=== PATIENT | female | born 1990 | race Caucasian/White ===

== ENCOUNTER → 2018-06-08 03:39 | Outpatient (CLI) | payer BC, SELFPAY ==
[2018-06-08 10:36] LABS: ALT 25 U/L (12-78); AST 21 U/L (15-37); Albumin 4.2 g/dL (3.4-5.0); Alkaline Phosphatase 96 U/L (46-116); Anion Gap 6.2 mmol/L (3-11); BUN 13 mg/dL (7-18); Bilirubin, Total 0.4 mg/dL (0.2-1.0); CO2 27.8 mmol/L (21.0-32.0); CREATININE 0.81 mg/dL (0.55-1.02); Calcium 8.6 mg/dL (8.5-10.1); Chloride 104 mmol/L (98-107); Cholesterol 140 mg/dL (50-200); Glucose 91 mg/dL (70-100); HDL Cholesterol 69 mg/dL (40-60); LDL CHOLESTEROL 67 mg/dL (<100); Potassium 4.6 mmol/L (3.5-5.1); Sodium 138 mmol/L (136-145); Total Protein 7.7 g/dL (6.4-8.2)
[2018-06-08 10:37] LABS: Triglyceride < 25 mg/dL (30-150)
== END ==
DX: Z00.00 Encounter for general adult medical examination without abnormal findings (principal); Z13.220 Encounter for screening for lipoid disorders; Z13.228 Encounter for screening for other metabolic disorders
CPT/HCPCS: 36415; 80053; 80061; 83721

== ENCOUNTER 2019-02-02 12:36 | Outpatient (CLI) | payer OTHER, SELFPAY ==
[2019-02-02 15:44] LABS: Vitamin B12 658 pg/mL (193-986)
[2019-02-02 16:26] LABS: Vitamin D 25 Total 18.7 ng/ml (30-100)
[2019-02-02 21:01] LABS: T3,Free 3.9 pg/ml (2.8-5.3)
[2019-02-02 21:11] LABS: T3, Total 102 ng/dl (97-169)
[2019-02-02 21:42] LABS: Progesterone 0.3 ng/ml
[2019-02-03 10:15] LABS: Thyroperoxidase Antibody <28 U/mL (<61)
[2019-02-03 17:58] LABS: Thyroxine Binding Globulin 20 mcg/mL (11-27)
[2019-02-04 18:12] LABS: Zinc, Plasma 61 ug/dl (70 - 120); Zinc, RBC 998 ug/dl
[2019-02-05 15:48] LABS: Testosterone, Total 31 ng/dL (8-60)
[2019-02-05 17:33] LABS: Estradiol, Mass Spectrometry 35 pg/mL; Estrone 53 pg/mL
[2019-02-14 12:03] LABS: FREE T4 < 0.10 ng/dL (0.76-1.46)
== END 2019-02-02 12:56 ==
PROVIDERS: Visit Provider Naturopath
DX: L65.9 Nonscarring hair loss, unspecified (principal); Z82.49 Family history of ischemic heart disease and other diseases of the circulatory system; Z83.3 Family history of diabetes mellitus
CPT/HCPCS: 36415; 82306; 83695; 84402; 84403; 84630; 82607; 82670; 82679; 82746; 83036; 84144; 84439; 84442; 84443; 84480; 84481; 86376

== ENCOUNTER 2019-02-03 02:49 | Outpatient (CLI) | payer OTHER, SELFPAY ==
[2019-02-03 08:40] LABS: Hemoglobin A1C 5.4 % (4.5-6.2)
[2019-02-04 16:15] LABS: Lipoprotein (a) 9 mg/dL (<=30)
== END 2019-02-03 03:09 ==
DX: L65.9 Nonscarring hair loss, unspecified (principal); Z82.49 Family history of ischemic heart disease and other diseases of the circulatory system; Z83.3 Family history of diabetes mellitus
CPT/HCPCS: 36415; 83695; 83036

== ENCOUNTER 2019-02-23 08:31 | Outpatient (CLI) | payer OTHER, SELFPAY ==
[2019-02-23 09:12] LABS: Abs Immature Grans 0.01 k/cumm (0.0-0.09); Absolute Basophil Count 0.03 k/cumm (0.0-0.2); Absolute Lymphocyte Count 2.55 k/cumm (1.2-3.4); Absolute Monocyte Count 0.64 k/cumm (0.11-0.7); Absolute Neutrophil Count 4.36 k/cumm (1.2-6.7); Basophils % 0.4; Eosinophils % 6.2; HCT 41.1 % (36.0-46.0); HGB 13.9 g/dL (12.0-15.5); Immature Grans % 0.1; Lymphocytes % 31.5; Mean Corp. HGB Concentration 33.8 g/dL (32.0-36.0); Mean Corpuscular Hemoglobin 30.2 pg (27.0-33.0); Mean Corpuscular Volume 89.2 fL (80-95); Mean Platelet Volume 9.5 fL (8.0-11.0); Monocytes % 7.9; Neutrophils % 53.9; Platelet Count 256 x1000/uL (130-400); RBC 4.61 m/cumm (4.00-5.20); RBC Distribution Width 13.1 % (11.7-14.6); White Blood Cell Count 8.09 k/cumm (4.4-10.8)
[2019-02-23 10:20] LABS: T4 8.6 ug/dL (4.5-12.5)
[2019-02-23 10:51] LABS: FREE T4 1.22 ng/dL (0.76-1.46)
[2019-02-24 11:26] LABS: Thyrotropin Receptor Ab <1.00 IU/L
[2019-02-24 13:00] LABS: Zinc, Serum 0.71 mcg/mL (0.66-1.10)
[2019-02-24 13:30] LABS: Copper, Serum 0.97 mcg/mL (0.75-1.45)
[2019-02-26 13:24] LABS: T3 (Triiodothyronine) Reverse 13 ng/dL (10-24)
== END 2019-02-23 08:51 ==
PROVIDERS: Visit Provider Naturopath
DX: E60 Dietary zinc deficiency (principal); R79.89 Other specified abnormal findings of blood chemistry
CPT/HCPCS: 36415; 82525; 84235; 84436; 84439; 84482; 84630; 85025

== ENCOUNTER 2019-07-19 09:04 | Outpatient (CLI) | payer OTHER, SELFPAY ==
[2019-07-19 11:25] LABS: Abs Immature Grans 0.03 k/cumm (0.0-0.09); Absolute Basophil Count 0.02 k/cumm (0.0-0.2); Absolute Eosinophil Count 0.46 k/cumm (0.0-0.7); Absolute Lymphocyte Count 2.66 k/cumm (1.2-3.4); Absolute Monocyte Count 0.71 k/cumm (0.11-0.7); Basophils % 0.2; HCT 41.2 % (36.0-46.0); HGB 14.2 g/dL (12.0-15.5); Immature Grans % 0.3; Lymphocytes % 23.3; Mean Corp. HGB Concentration 34.5 g/dL (32.0-36.0); Mean Corpuscular Hemoglobin 30.6 pg (27.0-33.0); Mean Corpuscular Volume 88.8 fL (80-95); Mean Platelet Volume 9.1 fL (8.0-11.0); Monocytes % 6.2; Platelet Count 262 x1000/uL (130-400); RBC 4.64 m/cumm (4.00-5.20); RBC Distribution Width 12.9 % (11.7-14.6); White Blood Cell Count 11.43 k/cumm (4.4-10.8)
[2019-07-19 11:27] LABS: Absolute Neutrophil Count 7.54 k/cumm (1.2-6.7)
[2019-07-19 12:44] LABS: *AMPHETAMINES SCREEN URINE Negative (Negative); *BARBITURATES SCREEN URINE Negative (Negative); *BENZODIAZEPINES SCREEN URINE Negative (Negative); Cannabinoids THC Negative (Negative); Cocaine Screen,Urine Negative (Negative); METHADONE URINE SCREEN Negative (Negative); OPIATES URINE SCREEN Negative (Negative)
[2019-07-19 12:50] LABS: TSH (W/Ref FT4) 0.79 uIU/mL (0.36-3.74)
[2019-07-19 12:51] LABS: Tricyclic Antidepressants Negative (Negative)
[2019-07-20 10:53] LABS: Rubella IgG Ab (UVM) Positive; Syphilis Serology (RPR) Negative (Negative); Varicella IgG Antibody Positive
[2019-07-20 11:34] LABS: Hepatitis B Surface Ag Negative (NEGAT)
[2019-07-20 11:41] LABS: Hepatitis C Ab w Rflx HCV PCR Negative (NEGAT)
[2019-07-20 11:46] LABS: HIV-1/2 Ag & Ab Screen Negative (NEGAT)
== END 2019-07-19 09:24 ==
PROVIDERS: Visit Provider Obstetrics & Gynecology
DX: Z34.91 Encounter for supervision of normal pregnancy, unspecified, first trimester (principal); Z11.3 Encounter for screening for infections with a predominantly sexual mode of transmission; Z11.59 Encounter for screening for other viral diseases; Z11.4 Encounter for screening for human immunodeficiency virus [HIV]
CPT/HCPCS: 80055; 80307; 86787; 86803; 86850; 86900; 86901; 87340; 87389; 84443; 86592; 86762; 87086

== ENCOUNTER 2019-07-19 17:25 | Outpatient (REF) | payer OTHER, SELFPAY ==
[2019-07-19 16:10] LABS: *AMPHETAMINES SCREEN URINE Negative (Negative); *BARBITURATES SCREEN URINE Negative (Negative); *BENZODIAZEPINES SCREEN URINE Negative (Negative); Cannabinoids THC Negative (Negative); Cocaine Screen,Urine Negative (Negative); METHADONE URINE SCREEN Negative (Negative); OPIATES URINE SCREEN Negative (Negative)
[2019-07-19 16:12] LABS: Tricyclic Antidepressants Negative (Negative)
[2019-07-24 17:44] LABS: Buprenorphine Negative; Norbuprenorphine Negative
== END 2019-07-19 17:45 ==
LOC: LBN 17:25
PROVIDERS: Visit Provider Obstetrics & Gynecology
DX: Z34.91 Encounter for supervision of normal pregnancy, unspecified, first trimester (principal)
CPT/HCPCS: 80307

== ENCOUNTER 2019-08-26 08:31 | Outpatient (CLI) | payer OTHER, SELFPAY ==
[2019-08-26 11:59] LABS: Kit/Specimen SENT
== END 2019-08-26 08:51 ==
PROVIDERS: Visit Provider Obstetrics & Gynecology
DX: Z34.91 Encounter for supervision of normal pregnancy, unspecified, first trimester (principal)
CPT/HCPCS: 36415

== ENCOUNTER 2019-09-13 01:10 | Outpatient (CLI) | payer OTHER, SELFPAY ==
--- NOTE | 2019-09-13 15:01 | DI.US_ITS ---
EXAM: US OB 2-3 TRIMESTER CLINICAL HISTORY: ,z34.90,supervision of normal TECHNIQUE: Ultrasound performed using standard protocol. COMPARISON: No exams were available for comparison FINDINGS: The fetus was in variable position during the exam. The placenta is anterior. The biometric measure ments correspond to 17 weeks 6 days, consistent with predicted gestational age. No abnormaliti es were seen. The amniotic fluid quantity appears visually normal. IMPRESSION: survey is within normal limits.
== END 2019-09-13 01:30 ==
PROVIDERS: Visit Provider Obstetrics & Gynecology
DX: Z34.92 Encounter for supervision of normal pregnancy, unspecified, second trimester (principal); Z3A.17 17 weeks gestation of pregnancy
CPT/HCPCS: 76805

== ENCOUNTER 2019-10-13 12:12 | Outpatient (CLI) | payer OTHER, SELFPAY ==
[2019-10-13 12:29] LABS: Abs Immature Grans 0.04 k/cumm (0.0-0.09); Absolute Basophil Count 0.03 k/cumm (0.0-0.2); Absolute Eosinophil Count 0.39 k/cumm (0.0-0.7); Absolute Lymphocyte Count 2.31 k/cumm (1.2-3.4); Basophils % 0.2; Eosinophils % 2.5; HCT 37.3 % (36.0-46.0); Immature Grans % 0.3; Lymphocytes % 14.8; Mean Corp. HGB Concentration 34.9 g/dL (32.0-36.0); Mean Corpuscular Hemoglobin 31.1 pg (27.0-33.0); Mean Corpuscular Volume 89.2 fL (80-95); Mean Platelet Volume 8.6 fL (8.0-11.0); Monocytes % 4.9; Neutrophils % 77.3; Platelet Count 268 x1000/uL (130-400); RBC 4.18 m/cumm (4.00-5.20); RBC Distribution Width 12.9 % (11.7-14.6); White Blood Cell Count 15.62 k/cumm (4.4-10.8)
[2019-10-13 12:30] LABS: Absolute Monocyte Count 0.77 k/cumm (0.11-0.7); Absolute Neutrophil Count 12.07 k/cumm (1.2-6.7)
== END 2019-10-13 12:32 ==
PROVIDERS: Visit Provider Obstetrics & Gynecology
DX: R23.3 Spontaneous ecchymoses (principal)
CPT/HCPCS: 36415; 85025

== ENCOUNTER 2019-12-01 00:07 | Outpatient (CLI) | payer OTHER, SELFPAY ==
[2019-12-01 07:44] LABS: Abs Immature Grans 0.07 k/cumm (0.0-0.09); Absolute Basophil Count 0.03 k/cumm (0.0-0.2); Absolute Eosinophil Count 0.23 k/cumm (0.0-0.7); Absolute Lymphocyte Count 2.23 k/cumm (1.2-3.4); Absolute Monocyte Count 0.81 k/cumm (0.11-0.7); Absolute Neutrophil Count 11.03 k/cumm (1.2-6.7); Basophils % 0.2; Eosinophils % 1.6; HCT 35.9 % (36.0-46.0); HGB 12.3 g/dL (12.0-15.5); Immature Grans % 0.5 %; Lymphocytes % 15.5; Mean Corp. HGB Concentration 34.3 g/dL (32.0-36.0); Mean Corpuscular Hemoglobin 30.8 pg (27.0-33.0); Mean Platelet Volume 8.7 fL (8.0-11.0); Monocytes % 5.6; Neutrophils % 76.6; Platelet Count 290 x1000/uL (130-400); RBC 3.99 m/cumm (4.00-5.20)
[2019-12-01 07:49] LABS: Glucose,1 Hr (Glucola) 98 mg/dL (80-140)
== END 2019-12-01 00:27 ==
PROVIDERS: Visit Provider Obstetrics & Gynecology
DX: Z34.92 Encounter for supervision of normal pregnancy, unspecified, second trimester (principal)
CPT/HCPCS: 36415; 82950; 85025

== ENCOUNTER 2020-01-26 10:46 | Outpatient (REF) | payer OTHER, SELFPAY ==
[2020-01-26 14:12] LABS: *AMPHETAMINES SCREEN URINE Negative (Negative); *BARBITURATES SCREEN URINE Negative (Negative); *BENZODIAZEPINES SCREEN URINE Negative (Negative); Cannabinoids THC Negative (Negative); Cocaine Screen,Urine Negative (Negative); METHADONE URINE SCREEN Negative (Negative); OPIATES URINE SCREEN Negative (Negative); Tricyclic Antidepressants Negative (Negative)
[2020-01-30 15:40] LABS: Buprenorphine Negative
== END 2020-01-26 11:06 ==
LOC: LBN 10:46
PROVIDERS: Visit Provider Obstetrics & Gynecology
DX: Z34.93 Encounter for supervision of normal pregnancy, unspecified, third trimester (principal); Z36.85 Encounter for antenatal screening for Streptococcus B
CPT/HCPCS: 80307; 87081

== ENCOUNTER 2020-02-01 09:05 | Inpatient (IN) | payer OTHER, SELFPAY ==
[2020-02-01] MEDS: Normal Saline Flush 10 ML SYR IVP (10:46)
[2020-02-01 10:48] LABS: HCT 39.1 % (36.0-46.0); HGB 13.7 g/dL (12.0-15.5); Mean Corpuscular Hemoglobin 30.6 pg (27.0-33.0); Mean Corpuscular Volume 87.3 fL (80-95); Mean Platelet Volume 8.8 fL (8.0-11.0); Platelet Count 309 x1000/uL (130-400); RBC 4.48 m/cumm (4.00-5.20); RBC Distribution Width 12.8 % (11.7-14.6); White Blood Cell Count 20.11 k/cumm (4.4-10.8)
[2020-02-01 13:47] LABS: Abs Immature Grans 0.12 k/cumm (0.0-0.09); Absolute Basophil Count 0.02 k/cumm (0.0-0.2); Absolute Eosinophil Count 0.22 k/cumm (0.0-0.7); Absolute Monocyte Count 1.22 k/cumm (0.11-0.7); Basophils % 0.1; Eosinophils % 1.1; Immature Grans % 0.6 %; Lymphocytes % 12.3; Neutrophils % 79.9
[2020-02-01] MEDS: Lactated Ringers 1,000 ML 125 ML IV ×2 (14:09→21:53)
[2020-02-02] MEDS: CLINDAMYCIN 900 MG/50 ML BAG 50 MG IVPB ×2 (08:02→15:32)
[2020-02-02 08:29] LABS: COVID-19 RT-PCR Result Negative
[2020-02-02] MEDS: Bupivacaine 0.25% Pres-Free 30 ML VIAL (09:02)
[2020-02-02] MEDS: fentaNYL 100 MCG/2 ML VIAL (09:03)
[2020-02-02] MEDS: FentaNYL/ROPIvacaine 2 mcg/ml and 0.1% 200 ML CADD Cassette EP (09:04)
[2020-02-02] MEDS: Lidocaine 1% Multi-Dose 20 ML VIAL IJ (13:30)
[2020-02-02] MEDS: Lactated Ringers 1,000 ML 125 ML IV (13:30)
[2020-02-03 06:37] LABS: HCT 38.7 % (36.0-46.0); HGB 13.2 g/dL (12.0-15.5); Mean Corp. HGB Concentration 34.1 g/dL (32.0-36.0); Mean Corpuscular Hemoglobin 29.7 pg (27.0-33.0); Mean Corpuscular Volume 87.2 fL (80-95); Platelet Count 249 x1000/uL (130-400); RBC 4.44 m/cumm (4.00-5.20); RBC Distribution Width 12.8 % (11.7-14.6); White Blood Cell Count 19.21 k/cumm (4.4-10.8)
--- NOTE | 2020-02-04 08:48 | W.PM.PROGNOT ---
Date of Service Date of service: 02/04/20 Time of Service: 08:48 Assessment and Plan Assessment and plan (1) (normal spontaneous vaginal delivery): Start date: 02/04/20 Status: Acute Assessment and plan: PPD 2 s/p . Plan for discharge home today. Subjective Subjective Interval history since last seen: Doing well. No problems or concerns. Minimal lochia. Objective Objective Clinical Data: Laboratory Results WBC 19.21 k/cumm (4.4-10.8) H 02/03/20 06:00 RBC 4.44 m/cumm (4.00-5.20) 02/03/20 06:00 Hgb 13.2 g/dL (12.0-15.5) 02/03/20 06:00 Hct 38.7 % (36.0-46.0) 02/03/20 06:00 MCV 87.2 fL (80-95) 02/03/20 06:00 MCH 29.7 pg (27.0-33.0) 02/03/20 06:00 MCHC 34.1 g/dL (32.0-36.0) 02/03/20 06:00 RDW 12.8 % (11.7-14.6) 02/03/20 06:00 Plt Count 249 x1000/uL (130-400) 02/03/20 06:00 MPV 9.0 fL (8.0-11.0) 02/03/20 06:00 Immature Gran % 0.6 % 02/01/20 10:35 Immature Gran % Cancelled 02/01/20 10:35 Neutrophils % 79.9 02/01/20 10:35 Neutrophils % Cancelled 02/01/20 10:35 Band Neutrophils % Cancelled 02/01/20 10:35 Lymphocytes % 12.3 02/01/20 10:35 Lymphocytes % Cancelled 02/01/20 10:35 Atypical Lymphs % Cancelled 02/01/20 10:35 Monocytes % 6.0 02/01/20 10:35 Monocytes % Cancelled 02/01/20 10:35 Eosinophils % 1.1 02/01/20 10:35 Eosinophils % Cancelled 02/01/20 10:35 Basophils % 0.1 02/01/20 10:35 Basophils % Cancelled 02/01/20 10:35 Metamyelocytes % Cancelled 02/01/20 10:35 Myelocytes % Cancelled 02/01/20 10:35 Promyelocytes % Cancelled 02/01/20 10:35 Absolute Neutrophils 16.20 k/cumm (1.2-6.7) H 02/01/20 10:35 Absolute Neutrophils Cancelled 02/01/20 10:35 Absolute Lymphocytes 2.50 k/cumm (1.2-3.4) 02/01/20 10:35 Absolute Lymphocytes Cancelled 02/01/20 10:35 Absolute Monocytes 1.22 k/cumm (0.11-0.7) H 02/01/20 10:35 Absolute Monocytes Cancelled 02/01/20 10:35 Absolute Eosinophils 0.22 k/cumm (0.0-0.7) 02/01/20 10:35 Absolute Eosinophils Cancelled 02/01/20 10:35 Absolute Basophils 0.02 k/cumm (0.0-0.2) 02/01/20 10:35 Absolute Basophils Cancelled 02/01/20 10:35 Nucleated RBCs Cancelled 02/01/20 10:35 Differential Comment Cancelled 02/01/20 10:35 Other Cell Type Cancelled 02/01/20 10:35 RBC Morphology Cancelled 02/01/20 10:35 Polychromasia Cancelled 02/01/20 10:35 Hypochromasia Cancelled 02/01/20 10:35 Poikilocytosis Cancelled 02/01/20 10:35 Basophilic Stippling Cancelled 02/01/20 10:35 Anisocytosis Cancelled 02/01/20 10:35 Microcytosis Cancelled 02/01/20 10:35 Macrocytosis Cancelled 02/01/20 10:35 Spherocytes Cancelled 02/01/20 10:35 Target Cells Cancelled 02/01/20 10:35 Tear Drop Cells Cancelled 02/01/20 10:35 Ovalocytes Cancelled 02/01/20 10:35 Stomatocytes Cancelled 02/01/20 10:35 [place] Bodies Cancelled 02/01/20 10:35 [place] Cells Cancelled 02/01/20 10:35 Acanthocytes (Spur) Cancelled 02/01/20 10:35 Schistocytes Cancelled 02/01/20 10:35 Nasopharyn COVID-19 PCR Negative 02/01/20 10:00 Patient ABO/Rh O Positive 02/01/20 10:35 Antibody Screen Negative 02/01/20 10:35
--- NOTE | 2020-02-06 13:48 | HPE_ITS ---
Date of service: 02/06/20 Time of Service: 13:48 Assessment and Plan Assessment and plan (1) SROM (spontaneous rupture of membranes): Status: Acute Assessment and plan: Spontaneous rupture of membranes at term. Will admit to labor and delivery. Obtain CBC, type and screen. Will manage expectantly f or the next 5 hours. If labor does not ensue spontaneously will augment with Pitocin after several hours. Pain management options during labor were reviewed with the patient. All questions were answered. heart tracing was reviewed and is category 1. History of Present Illness History of Present Illness Chief Complaint: SROM at 37 weeks Narrative: 29-year-old G1, P0 at 37 weeks gestation presented with spontaneous rupture of membranes this morning. The patient reports a large loss of clear amniotic fluid. She reports only minimal rare contractions. Her pedal course to this point has been uncomplicated. Cervix on initial examination was fingertip and dilatation. Review of Systems All systems reviewed & are unremarkable except as noted in HPI and below PFS Surgical History (Updated 07/28/18 @ 14:35 by [employer] [place]) Appendectomy (~01/2011) Tonsillectomy (06/10/12) DR. SHEIKH @ [facility] Family History Mother No problems noted. Father Hyperlipidemia Brother No problems noted. Grandfather Diabetes Essential hypertension Heart disease Hyperlipidemia Grandfather Essential hypertension Hyperlipidemia Grandmother Diabetes Essential hypertension Personal history of malignant neoplasm OVARIAN Heart disease Hyperlipidemia Grandmother No problems noted. Social History Smoking/Tobacco Use Status: Never Meds Home Medications and Allergies Home Medications Medication Instructions Recorded Confirmed Type prenat.vits,michael,[id number] 1 tab PO DAILY 06/28/19 02/01/20 History Allergies Allergy/AdvReac Type Severity Reaction Status Date / Time No Known Allergies Allergy Verified 01/26/20 10:03 Exam Other: Cervical exam - FT/70%/-2 Results Labs Result diagrams: 02/03/20 06:00 COVID-19 Screening Traveled to [place] from one of the affected countries or regions?: N
--- NOTE | 2020-02-06 13:51 | PGE_ITS ---
Date of Service Date of service: 02/02/20 Time of Service: 07:30 Assessment and Plan Assessment and plan (1) SROM (spontaneous rupture of membranes): Status: Acute Assessment and plan: Continue Pitocin augmentation of labor. We will reevaluate cervical exam as needed. Subjective Subjective Interval history since last seen: Patient reports painful contractions overnight. She has been on Pitocin since approximately 2 PM yesterday. We did hold Pitocin overnight briefly due to lack of progress and this was restarted this morning. Repeat cervical exam at 430 this morning was 3 cm dilatation. She has been afebrile. Objective Objective Clinical Data: Laboratory Results WBC 19.21 k/cumm (4.4-10.8) H 02/03/20 06:00 RBC 4.44 m/cumm (4.00-5.20) 02/03/20 06:00 Hgb 13.2 g/dL (12.0-15.5) 02/03/20 06:00 Hct 38.7 % (36.0-46.0) 02/03/20 06:00 MCV 87.2 fL (80-95) 02/03/20 06:00 MCH 29.7 pg (27.0-33.0) 02/03/20 06:00 MCHC 34.1 g/dL (32.0-36.0) 02/03/20 06:00 RDW 12.8 % (11.7-14.6) 02/03/20 06:00 Plt Count 249 x1000/uL (130-400) 02/03/20 06:00 MPV 9.0 fL (8.0-11.0) 02/03/20 06:00 Immature Gran % 0.6 % 02/01/20 10:35 Immature Gran % Cancelled 02/01/20 10:35 Neutrophils % 79.9 02/01/20 10:35 Neutrophils % Cancelled 02/01/20 10:35 Band Neutrophils % Cancelled 02/01/20 10:35 Lymphocytes % 12.3 02/01/20 10:35 Lymphocytes % Cancelled 02/01/20 10:35 Atypical Lymphs % Cancelled 02/01/20 10:35 Monocytes % 6.0 02/01/20 10:35 Monocytes % Cancelled 02/01/20 10:35 Eosinophils % 1.1 02/01/20 10:35 Eosinophils % Cancelled 02/01/20 10:35 Basophils % 0.1 02/01/20 10:35 Basophils % Cancelled 02/01/20 10:35 Metamyelocytes % Cancelled 02/01/20 10:35 Myelocytes % Cancelled 02/01/20 10:35 Promyelocytes % Cancelled 02/01/20 10:35 Absolute Neutrophils 16.20 k/cumm (1.2-6.7) H 02/01/20 10:35 Absolute Neutrophils Cancelled 02/01/20 10:35 Absolute Lymphocytes 2.50 k/cumm (1.2-3.4) 02/01/20 10:35 Absolute Lymphocytes Cancelled 02/01/20 10:35 Absolute Monocytes 1.22 k/cumm (0.11-0.7) H 02/01/20 10:35 Absolute Monocytes Cancelled 02/01/20 10:35 Absolute Eosinophils 0.22 k/cumm (0.0-0.7) 02/01/20 10:35 Absolute Eosinophils Cancelled 02/01/20 10:35 Absolute Basophils 0.02 k/cumm (0.0-0.2) 02/01/20 10:35 Absolute Basophils Cancelled 02/01/20 10:35 Nucleated RBCs Cancelled 02/01/20 10:35 Differential Comment Cancelled 02/01/20 10:35 Other Cell Type Cancelled 02/01/20 10:35 RBC Morphology Cancelled 02/01/20 10:35 Polychromasia Cancelled 02/01/20 10:35 Hypochromasia Cancelled 02/01/20 10:35 Poikilocytosis Cancelled 02/01/20 10:35 Basophilic Stippling Cancelled 02/01/20 10:35 Anisocytosis Cancelled 02/01/20 10:35 Microcytosis Cancelled 02/01/20 10:35 Macrocytosis Cancelled 02/01/20 10:35 Spherocytes Cancelled 02/01/20 10:35 Target Cells Cancelled 02/01/20 10:35 Tear Drop Cells Cancelled 02/01/20 10:35 Ovalocytes Cancelled 02/01/20 10:35 Stomatocytes Cancelled 02/01/20 10:35 [place] Bodies Cancelled 02/01/20 10:35 [place] Cells Cancelled 02/01/20 10:35 Acanthocytes (Spur) Cancelled 02/01/20 10:35 Schistocytes Cancelled 02/01/20 10:35 Nasopharyn COVID-19 PCR Negative 02/01/20 10:00 Patient ABO/Rh O Positive 02/01/20 10:35 Antibody Screen Negative 02/01/20 10:35
== END 2020-02-04 11:45 | disposition home or self-care (01) | DRG 807 ==
PROVIDERS: Admitting Provider Obstetrics & Gynecology; Visit Provider Obstetrics & Gynecology
DX: O69.81X0 Labor and delivery complicated by cord around neck, without compression, not applicable or unspecified (principal); Z37.0 Single live birth; Z3A.37 37 weeks gestation of pregnancy; O42.02 Full-term premature rupture of membranes, onset of labor within 24 hours of rupture; O70.0 First degree perineal laceration during delivery
CPT/HCPCS: 36415; 85027; 86850; 86900; 86901; 99223; 99233; U0003; 85007; J1580; J3010; J3490

== ENCOUNTER 2020-02-07 12:07 | Outpatient (CLI) | payer OTHER, SELFPAY | END 2020-02-07 12:27 | PROVIDERS: Visit Provider Obstetrics & Gynecology | DX: Z39.1 Encounter for care and examination of lactating mother (principal) | CPT/HCPCS: E0602 ==

== ENCOUNTER 2020-03-13 10:58 | Outpatient (REF) | payer OTHER, SELFPAY ==
--- NOTE | 2020-03-13 10:30 | PAPFT_PTH ---
PATIENT: Billie Phillips LOC: [facility] U#:[id number] AGE/SX: 29/F ROOM: RE03/13/[address]: Yoan Turner MD : 1990 BED: DIS: 03/13/2020 SPEC #: [id number] RECD: 03/13/20 13:04 STATUS: GRACIE REChase #: [id number] THANH: 03/13/20 10:[address]: Yoan Turner DEPT: ON LICENSE OF [facility] Cytology RECD BY: Felicia Jasmine ENTERED: 03/13/20 13:04 SP TYPE: PAPFT OTHR DR: Dulce Shook APRN Tissues: 1 - CX/ENDOCX FOR PAP SMEARS Procedures: PAP THIN PREP/[facility] Screening Comments: [id number]
== END 2020-03-13 11:18 ==
LOC: LBN 10:58
PROVIDERS: Visit Provider Obstetrics & Gynecology
DX: Z12.4 Encounter for screening for malignant neoplasm of cervix (principal)
CPT/HCPCS: 88142

== ENCOUNTER 2020-09-10 07:56 | Outpatient (REF) | payer OTHER, SELFPAY ==
[2020-09-11 02:20] LABS: COVID-19 RT-PCR UVMMC Result Negative (Negative)
== END 2020-09-10 08:16 ==
LOC: LBO 07:56
PROVIDERS: Visit Provider Surgery
DX: Z20.828 Contact with and (suspected) exposure to other viral communicable diseases (principal)
CPT/HCPCS: U0003

== ENCOUNTER 2021-10-16 09:00 | Outpatient (CLI) | payer OTHER, SELFPAY ==
[2021-10-16 10:13] LABS: HCG Quant, Pregnancy 16264 mIU/mL (1-3)
== END 2021-10-16 09:01 | disposition home or self-care (01) ==
LOC: LBO 09:00
PROVIDERS: Visit Provider Obstetrics & Gynecology
DX: O36.80X0 Pregnancy with inconclusive fetal viability, not applicable or unspecified (principal)
CPT/HCPCS: 36415; 84702

== ENCOUNTER 2021-10-18 15:26 | Outpatient (REF) | payer OTHER, SELFPAY ==
[2021-10-18 16:04] LABS: HCG Quant, Pregnancy 24904 mIU/mL (1-3)
== END 2021-10-18 15:27 | disposition home or self-care (01) ==
LOC: LBN 15:26
PROVIDERS: Visit Provider Obstetrics & Gynecology
DX: O26.851 Spotting complicating pregnancy, first trimester (principal)
CPT/HCPCS: 84702

== ENCOUNTER 2021-10-22 02:19 | Outpatient (CLI) | payer OTHER, SELFPAY ==
[2021-10-22 15:50] LABS: HCG Quant, Pregnancy 44798 mIU/mL (1-3)
== END 2021-10-22 02:20 | disposition home or self-care (01) ==
LOC: LBO 02:19
PROVIDERS: Visit Provider Obstetrics & Gynecology
DX: O26.851 Spotting complicating pregnancy, first trimester (principal)
CPT/HCPCS: 36415; 84702

== ENCOUNTER 2021-11-25 12:30 | Outpatient (REF) | payer OTHER, SELFPAY ==
[2021-11-25 14:49] LABS: *AMPHETAMINES SCREEN URINE Negative (Negative); *BARBITURATES SCREEN URINE Negative (Negative); *BENZODIAZEPINES SCREEN URINE Negative (Negative); Cannabinoids THC Negative (Negative); Cocaine Screen,Urine Negative (Negative); METHADONE URINE SCREEN Negative (Negative); OPIATES URINE SCREEN Negative (Negative)
[2021-11-25 14:50] LABS: Tricyclic Antidepressants Negative (Negative)
[2021-11-26 15:21] LABS: Chlamydia Result Negative (Negative); GC Result Negative (Negative)
[2021-11-28 11:08] LABS: Buprenorphine Negative ng/mL (Cutoff: 5.0); Norbuprenorphine Negative ng/mL (Cutoff: 2.5)
== END 2021-11-25 12:31 | disposition home or self-care (01) ==
LOC: LBN 12:30
PROVIDERS: Visit Provider Advanced Practice Midwife
DX: Z34.91 Encounter for supervision of normal pregnancy, unspecified, first trimester (principal)
CPT/HCPCS: 80307; 87491; 87591; 87086

== ENCOUNTER 2021-11-26 02:17 | Outpatient (CLI) | payer OTHER, SELFPAY ==
[2021-11-26 14:39] LABS: Kit/Specimen SENT
[2021-11-26 14:49] LABS: Abs Immature Grans 0.04 10^3/uL (0.0-0.06); Absolute Basophil Count 0.01 10^3/uL (0.0-0.2); Absolute Eosinophil Count 0.35 10^3/uL (0.0-0.7); Absolute Monocyte Count 0.69 10^3/uL (0.1-0.8); Absolute Neutrophil Count 9.86 10^3/uL (1.2-6.7); Basophils % 0.1; Eosinophils % 2.5; HCT 39.4 % (36.0-46.0); HGB 13.1 g/dL (11.2-15.7); Immature Grans % 0.3; Lymphocytes % 22.6; MCH 29.8 pg (27.0-33.0); MCHC 33.2 % (32.0-36.0); MCV 89.7 fL (80-95); MPV 8.7 fL (8.0-11.0); Monocytes % 4.9; Neutrophils % 69.6; Nucleated RBC 0 %; Platelet Count 271 10^3/uL (130-400); RBC 4.39 10^6/uL (3.93-5.22); RDW-SD 42.8 fL; WBC 14.17 10^3/uL (4.4-10.8)
[2021-11-28 09:36] LABS: Hepatitis B Surface Ag Negative (Negative)
[2021-11-28 10:11] LABS: HIV-1/2 Ag & Ab Screen Negative (Negative)
[2021-11-28 10:28] LABS: Hepatitis C Ab w Rflx HCV PCR Negative (Negative)
[2021-11-28 10:43] LABS: Varicella IgG Antibody Positive (See Note)
[2021-11-28 10:47] LABS: Rubella IgG Ab (UVM) Positive (See Note)
[2021-12-11 11:22] LABS: Syphilis IgG w/Reflex Nonreactive (Nonreactive)
== END 2021-11-26 02:18 | disposition home or self-care (01) ==
PROVIDERS: Visit Provider Advanced Practice Midwife
DX: Z34.81 Encounter for supervision of other normal pregnancy, first trimester (principal)
CPT/HCPCS: 86787; 86803; 86850; 86900; 86901; 87340; 87389; 85025; 86762; 86780

== ENCOUNTER 2022-01-24 10:09 | Outpatient (REF) | payer OTHER, SELFPAY ==
[2022-01-27 14:28] LABS: Calculated age at EDD 31 years; Cigarette smoking status non-Smoker; GA used in risk estimate Scan estimate; IVF Pregnancy No; Initial or repeat testing Initial testing; Insulin dependent diabetes No; Maternal Weight 191 lbs; Number of Fetuses 1; Physician Phone Number 802-748-7300; Prev Pregnancy w/NTD No; RECOMMENDED FOLLOW UP None.; Results Summary Normal risk
== END 2022-01-24 10:10 | disposition home or self-care (01) ==
LOC: LBN 10:09
PROVIDERS: Visit Provider Obstetrics & Gynecology
DX: Z34.92 Encounter for supervision of normal pregnancy, unspecified, second trimester (principal); Z36.89 Encounter for other specified antenatal screening; Z3A.19 19 weeks gestation of pregnancy
CPT/HCPCS: 82105

== ENCOUNTER 2022-03-31 02:40 | Outpatient (CLI) | payer OTHER, SELFPAY ==
[2022-03-31 07:24] LABS: Glucose,1 Hr (Glucola) 93 mg/dL (80-140)
== END 2022-03-31 02:41 | disposition home or self-care (01) ==
LOC: LBO 02:40
PROVIDERS: Obstetrics & Gynecology Gynecology; Visit Provider Obstetrics & Gynecology
DX: Z34.93 Encounter for supervision of normal pregnancy, unspecified, third trimester (principal); Z3A.29 29 weeks gestation of pregnancy
CPT/HCPCS: 36415; 82950

== ENCOUNTER 2022-05-19 17:22 | Outpatient (REF) | payer OTHER, SELFPAY ==
[2022-05-19 15:54] LABS: *AMPHETAMINES SCREEN URINE Negative (Negative); *BARBITURATES SCREEN URINE Negative (Negative); *BENZODIAZEPINES SCREEN URINE Negative (Negative); Cannabinoids THC Negative (Negative); Cocaine Screen,Urine Negative (Negative); METHADONE URINE SCREEN Negative (Negative); OPIATES URINE SCREEN Negative (Negative)
[2022-05-19 16:09] LABS: Tricyclic Antidepressants Negative (Negative)
[2022-05-28 10:03] LABS: Buprenorphine Negative ng/mL (Cutoff: 5.0); Norbuprenorphine Negative ng/mL (Cutoff: 2.5)
== END 2022-05-19 17:23 | disposition home or self-care (01) ==
LOC: LBN 17:22
PROVIDERS: Visit Provider Obstetrics & Gynecology
DX: Z34.93 Encounter for supervision of normal pregnancy, unspecified, third trimester (principal); Z36.85 Encounter for antenatal screening for Streptococcus B; Z3A.36 36 weeks gestation of pregnancy
CPT/HCPCS: 80307; 87081

== ENCOUNTER 2022-06-13 04:26 | Inpatient (IN) | payer OTHER, SELFPAY ==
[2022-06-13] VITALS (24 sets, daily range): BP systolic 116–161; BP diastolic 56–104; PULSE 53–88; RESP 16–18; TEMP 36.6–36.8; O2SAT 98–99; BMI 35.6
--- OUTSIDE RECORDS SUMMARY | 2022-06-13 04:27 | XMS_ITS | Encounter Summary ---
:1990 Author Organization [facility] Address [address] [place] [address] Care Team Providers Name Role Phone Cally Flores Primary Care Provider Unavailable Encounter Details Date Type Department Care Team Description 11/25/2021 Lab Requisition [facility] Outr Resulting Lab, Pathology & Laboratory Provider [facility] [address] [place] [address] Social History Tobacco Use Types Packs/Day Years Used Date Never Assessed Sex Assigned at Date Recorded Not on file documented as of this encounter Plan of Treatment Not on filedocumented as of this encounter Procedures Procedure Name Priority Date/Time Associated Comments Diagnosis CHLAMYDIA/N. Routine 11/25/2021 9:25 Results for this GONORRHOEAE AMPLIFIED EST proced ure are in RNA the results section. documented in this encounter Results CHLAMYDIA/N. GONORRHOEAE AMPLIFIED RNA (11/25/2021 9:25 EST) Pathologist Sig nature Gonococcus Result Negative Negative [facility] Chlamydia Result Negative Negative [facility] Specimen Urine - Urine, Initial Void Narrative [facility] - 11/26/2021 15:16 EST A first catch urine specimen is acceptab le for detection of Gonorrhea and Chlamydia, but might detect up to 10% fewer infecti ons when compared with vaginal and endocervical swab samples. Performing Organization Address City/State/ZIP Code Phon e Number [facility] [address] [place] [address] SERVICES documented in this encounter Visit Diagnoses Not on filedocumented in this encounter Care Teams Senior Quality Control Technician Relationship Specialty Start Date End Date Cally Flores PA PCP - General 06/16/12 documented as of this encounter
--- OUTSIDE RECORDS SUMMARY | 2022-06-13 04:27 | XMS_ITS | Encounter Summary ---
:1990 Author Organization [facility] Address [address] [place] [address] Care Team Providers Name Role Phone Unknown, Provider Primary Care Provider Encounter Details Date Type Department Care Team Description 01/31/2011 Results Only [facility] Alpesh Magdaleno , Laboratory Services - [address] [facility] [address] [place] [address] [place] [address] [phone] Social History Tobacco Use Types Packs/Day Years Used Date Never Assessed Sex Assigned at Date Recorded Not on file documented as of this encounter Plan of Treatment Not on filedocumented as of this encounter Procedures Procedure Name Priority Date/Time Associated Diagnosis Comme [facility] SURGICAL PATHOLOGY Routine 01/31/2011 0:00 EDT Re sults for this procedure are i n the results section. documented in this encounter Results SURGICAL PATHOLOGY (01/31/2011 0:00 EDT) Pathology Report: SURGICAL PATHOLOGY REPORT ? [facility] Reports generated via [employer] interface contain original data; ? LAB however they are lacking the format of the original report. ? Caution should be taken when reading/interpreting unformatted reports. ? Name: ? ANNMARIE, BILLIE ? Accession #: ? [id number] ? : ? 1990 (Age: 20) ??F ? Collec t Date: ? 01/31/2011 ? Location: ? [facility] ? R eceive Date: ? 02/03/2011 ? Provider: ALPESH BURNS SON DO ? Copy to: SARAH BETH RODRIGUEZ MD ? Final Pathologic Diagnosis: ? Appendix, appendectom y: ? - Subacute appendicitis. ? Document reviewed and electr onically signed by: ? TERRIE CHRISTOPHER MD ? Report ??Date: 02/05/2011 15 :47 ? By the signature above, the attending physician certifies that he/she has ? personally conducted a gross and/or microscopic examination of the described ? specimens and rendered or co nfirmed the above diagnosis. ? Specimen(s) Received: ? Appendix ? Clinical History: ? Appendicitis ? Gross Description: ? Received in formalin labelled Annmarie, Billie and appendix is a ? vermiform appendix measuring 5.0 cm in length, averaging 0.6 cm in diameter. ? The serosa is predominantly horner-pink, smooth and glistening and focally ? hyperemic at the distal aspe ct. ??There is a minimal amount of attached ? mesoappendix. ??Upon section ing, the lumen ranges from 0.1 to 0.4 cm in diameter. The wall averages 0.2 cm in thickness and no discrete nodule or perforation is grossly present. ??The proxi mal margin is inked for identification purposes. ??The specimen is entirely submitt ed as follows: ? BLOCK MILLARD ? A1 ?Inked proxi mal margin en face one cross section and the distal end ?? bisected ? A2,A3 ?Remainin g cross sections ? (M. Butler)/cjh ? End of Report ? Specimen Performing Organization Address City/State/[facility] Code Phon e Number [facility] [address] [place] [address] SERVICES [facility] [address] [place] [address] documented in this encounter Visit Diagnoses Not on filedocumented in this encounter Care Teams Digital Marketing Manager Relationship Specialty Start Date End Date Unknown, Provider, PCP - General 02/03/11 06/15/12 documented as of this encounter
--- OUTSIDE RECORDS SUMMARY | 2022-06-13 04:27 | XMS_ITS | Encounter Summary ---
:1990 Author Organization [facility] Address [address] [place] [address] Care Team Providers Name Role Phone Magy Flores Primary Care Provider Unavailable Encounter Details Date Type Department Care Team Description 02/23/2014 Results Only [facility] Miranda Flores am, PA Services - [place] en [address] [address] Social History Tobacco Use Types Packs/Day Years Used Date Never Assessed Sex Assigned at Date Recorded Not on file documented as of this encounter Plan of Treatment Not on filedocumented as of this encounter Procedures Procedure Name Priority Date/Time Associated Diagnosis Comme nts PAP TEST- RESULT Routine 02/23/2014 0:00 EDT Resu lts for this ONLY procedure are i n the results section. documented in this encounter Results PAP TEST- RESULT ONLY (02/23/2014 0:00 EDT) Pathology Report: CYTOPATHOLOGY REPORT [facility] Reports generated via electronic interface contain jeniffer ginal data; however they are lacking the format of the original re port. Caution should be taken when reading/interpreting unfo rmatted reports. Name: ? BILLIE ANGUIANO ? Accession #: ? [id number] : ? 1990 (Age: 23) ??F ?Collect Date: ? 02/09 Location: ? [facility] ? Receive Date : ? 02/27/2014 Provider: ?MAGY HUFFMAN Copy to: ? Specimen/Source: ? Pap Test, Cervix/Endocervix, ThinPrep Imaging System with manual evaluation Last Menstrual Period: ? unknown ? SPECIMEN ADEQUACY ? Satisfactory for Evaluation - transformation zone component present - lack of pertinent clinical information (e.g. LMP not provided) GENERAL CATEGORIZATION ? Negative for Intraepithelial Lesion or Malignan cy ? Document reviewed and electronically signed by: ? VU Nam(ASCP) ? Report Date: ??03/07/2014 14:05 End of Report Specimen Performing Organization Address City/State/ZIP Code Phon e Number [facility] [address] [place] [address] SERVICES [facility] [address] [place] [address] documented in this encounter Visit Diagnoses Not on filedocumented in this encounter Care Teams Nuclear Medicine Technician Relationship Specialty Start Date End Date Magy Flores PA PCP - General 06/16/12 documented as of this encounter
--- OUTSIDE RECORDS SUMMARY | 2022-06-13 04:27 | XMS_ITS | Encounter Summary ---
:1990 Author Organization [facility] Address [address] [place] [address] Care Team Providers Name Role Phone Cally Flores Primary Care Provider Unavailable Encounter Details Date Type Department Care Team Description 02/11/2016 Hospital Encounter [facility] - Unknown, Janae irene [facility] [phone] [place] [address] (Work) [place] [address] Social History Tobacco Use Types Packs/Day Years Used Date Never Assessed Sex Assigned at Date Recorded Not on file documented as of this encounter Discharge Disposition Disposition Code Departure Means Destination Home or Self Snf documented in this encounter Plan of Treatment Not on filedocumented as of this encounter Visit Diagnoses Not on filedocumented in this encounter Care Teams Lath Tier Relationship Specialty Start Date End Date Cally Flores PA PCP - General 06/16/12 documented as of this encounter
--- OUTSIDE RECORDS SUMMARY | 2022-06-13 04:27 | XMS_ITS | Encounter Summary ---
:1990 Author Organization [facility] Address [address] [place] [address] Care Team Providers Name Role Phone Cally Flores Primary Care Provider Unavailable Encounter Details Date Type Department Care Team Description 11/27/2021 Lab Requisition [facility] Outr Resulting Lab, Pathology & Laboratory Provider [facility] [address] [place], [place] [address] Social History Tobacco Use Types Packs/Day Years Used Date Never Assessed Sex Assigned at Date Recorded Not on file documented as of this encounter Plan of Treatment Not on filedocumented as of this encounter Procedures Procedure Name Priority Date/Time Associated Diagnosis Comme nts RUBELLA IGG Routine 11/26/2021 14:20 Results for this ANTIBODY EST procedure are i n the results section. VARICELLA IGG Routine 11/26/2021 14:20 Results fo r this ANTIBODY EST procedure are i n the results section. documented in this encounter Results VARICELLA IGG ANTIBODY (11/26/2021 14:20 EST) Varicella IgG Ab PositiveComment: See Note [facility] Presence of LABORATORY SERVICES detectable Varicella Zoster virus IgG antibodies. Specimen Blood - Venous blood (substance) Performing Organization Address City/[facility]/ZIP Code Phon e Number [facility] [address] [place] [address] SERVICES RUBELLA IGG ANTIBODY (11/26/2021 14:20 EST) Rubella IgG Ab PositiveComment: See Note [facility] Positive for IgG LABORATORY SERVICES antibodies to Rubella virus. Specimen Blood - Venous blood (substance) Performing Organization Address City/[facility] Code Phon e Number [facility] [address] [place] [address] SERVICES documented in this encounter Visit Diagnoses Not on filedocumented in this encounter Care Teams Skein Yarn Drier Relationship Specialty Start Date End Date Cally Flores PA PCP - General 06/16/12 documented as of this encounter
--- OUTSIDE RECORDS SUMMARY | 2022-06-13 04:27 | XMS_ITS | Encounter Summary ---
:1990 Author Organization [facility] Address [address] [place] [address] Care Team Providers Name Role Phone Cally Flores Primary Care Provider Unavailable Encounter Details Date Type Department Care Team Description 05/28/2021 Lab Requisition [facility] Outr Resulting Lab, Pathology & Laboratory Provider [facility] [address] [place], [place] [address] Social History Tobacco Use Types Packs/Day Years Used Date Never Assessed Sex Assigned at Date Recorded Not on file documented as of this encounter Plan of Treatment Not on filedocumented as of this encounter Procedures Procedure Name Priority Date/Time Associated Diagnosis Comme nts COVID-19 TEST [facility] Today 05/28/2021 9:16 EDT LAB PCR COVID-19 TESTING Routine 05/28/2021 9:16 EDT Resu lts for this procedure are i n the results section. documented in this encounter Results COVID-19 TEST [facility] LAB PCR (05/28/2021 9:16 EDT) Specimen Swab - Entire nasopharynx (body structur e) Performing Organization Address City/State/ZIP Code Phon e Number [facility] [address] [place] [address] SERVICES COVID-19 TESTING (05/28/2021 9:16 EDT) COVID-19 rt-PCR Negative Negative [facility] Result Comment: [facility] This test has not been FDA c leared or approved. This test has been authorized by FDA under an EUA for use by authorized laboratories. This test has been authorized only for detection of nucleic acid fro SERVICES m 2018-nCoV, not for any oth er viruses or pathogens. This test is only authorized for the duration of the declaration that circumstances exist justifying the authorization of emergency use of in vitro d iagnostic tests for detectio n and/or diagnosis of 2019-nCoV under section 564(b)(1) of Act, 21 U.S.C ?? 360bbb-3(b) (1), unless the authorization is terminated or revoked sooner. Negative results do not prec lude 2019-nCoV infection and should not be used as the sole basis for treatment or other patient management decisions. Negative results must be combined with clinical observa tions, patient history, and epidemiological informatio n. This test was developed and its performance characteristics determined by [facility]. It has not been cleared or approved by the US Food and Drug Administration. FDA does not require this test to go through premarket FDA review. This t est is used for clinical purposes. It should not be regarded as investigational or for research. This laboratory is certified under the Clinical Laboratory Improvement Amendm ents (CLIA) as qualified to perform high complexity clinical laboratory testing. This test is based on the CD C COVID-19 Emergency Use Authorization (EUA) assay, with minor modification as defined by the FDA Performed on the Bah[employer]io 7 Pro RT-PCR System. Performing Lab [facility] Specimen Swab Performing Organization Address City/State/ZIP Code Phon e Number [facility] [address] [place] [address] SERVICES documented in this encounter Visit Diagnoses Not on filedocumented in this encounter Care Teams Restaurant Recruiter Relationship Specialty Start Date End Date Cally Flores PA PCP - General 06/16/12 documented as of this encounter
--- OUTSIDE RECORDS SUMMARY | 2022-06-13 04:27 | XMS_ITS | Encounter Summary ---
:1990 Author Organization Health system Address [address] [place] [address] Care Team Providers Name Role Phone Cally Flores Primary Care Provider Unavailable Encounter Details Date Type Department Care Team Description 09/10/2020 Lab Requisition [facility] Outr Resulting Lab, Pathology & Laboratory Provider [facility] [address], [place] [address] Social History Tobacco Use Types Packs/Day Years Used Date Never Assessed Sex Assigned at Date Recorded Not on file documented as of this encounter Plan of Treatment Not on filedocumented as of this encounter Procedures Procedure Name Priority Date/Time Associated Diagnosis Comme nts COVID-19 TEST [facility] Today 09/10/2020 12:26 LAB PCR EST COVID-19 TESTING Routine 09/10/2020 12:26 Results for this EST procedure are i n the results section. documented in this encounter Results COVID-19 TEST [facility] LAB PCR (09/10/2020 12:26 EST) Specimen Swab - Entire nasopharynx (body structur e) Performing Organization Address City/State/ZIP Code Phon e Number [facility] [address] [place] [address] SERVICES COVID-19 TESTING (09/10/2020 12:26 EST) COVID-19 rt-PCR Negative Negative [facility] Result Comment: [facility] This test [...] tions, patient history, and epidemiological informatio n. Performed on the [employer] Fusion instrument Performing Lab [place] [facility] Lab [facility] SERVICES Specimen Swab Performing Organization Address City/State/ZIP Code Phon e Number [facility] [address] [place] [phone] SERVICES documented in this encounter Visit Diagnoses Not on filedocumented in this encounter Care Teams Rouge Miller Relationship Specialty Start Date End Date Cally Flores PA PCP - General 06/16/12 documented as of this encounter
--- OUTSIDE RECORDS SUMMARY | 2022-06-13 04:27 | XMS_ITS | Encounter Summary ---
:1990 Author Organization [facility] Address [address] [place] [id number] Care Team Providers Name Role Phone Unknown, Provider Primary Care Provider Encounter Details Date Type Department Care Team Description 12/22/2011 Results Only [facility] Miranda Flores am, PA Services - [place] All en [address] [address] Social History Tobacco Use Types Packs/Day Years Used Date Never Assessed Sex Assigned at Date Recorded Not on file documented as of this encounter Plan of Treatment Not on filedocumented as of this encounter Procedures Procedure Name Priority Date/Time Associated Diagnosis Comme nts PAP TEST- RESULT Routine 12/22/2011 0:00 EDT Resu lts for this ONLY procedure are i n the results section. documented in this encounter Results PAP TEST- RESULT ONLY (12/22/2011 0:00 EDT) Pathology Report: CYTOPATHOLOGY REPORT [facility] Reports generated via electronic interface contain jeniffer ginal data; however they are lacking the format of the original re port. Caution should be taken when reading/interpreting unfo rmatted reports. Name: ? BILLIE ANGUIANO ? Accession #: ? [id number] : ? 1990 (Age: 21) ??F ?Collect Date: ? 12/10 Location: ? [facility] ? Receive Date : ? 12/23/2011 Provider: ?MAGY HUFFMAN Copy to: ? Specimen/Source: ? Pap Test, Cervix/Endocervix, ThinPrep Imaging System with manual evaluation Last Menstrual Period: ? 12/08/2011 Hormonal/Contraceptive Status: ? Control Pills ? SPECIMEN ADEQUACY ? Satisfactory for Evaluation - transformation zone component present GENERAL CATEGORIZATION ? Negative for Intraepithelial Lesion or Malignan cy ? Document reviewed and electronically signed by: ? UV Banuelos(ASCP) ? Report Date: ??12/25/2011 09:49 End of Report Specimen Performing Organization Address City/State/ZIP Code Phon e Number [facility] [address] [place] [address] SERVICES [facility] [address] [place] [address] documented in this encounter Visit Diagnoses Not on filedocumented in this encounter Care Teams Concert Promoter Relationship Specialty Start Date End Date Unknown, Provider, PCP - General 02/03/11 06/15/12 documented as of this encounter
--- OUTSIDE RECORDS SUMMARY | 2022-06-13 04:27 | XMS_ITS | Encounter Summary ---
:1990 Author Organization [facility] Address [address] [place] [address] Care Team Providers Name Role Phone Cally Flores Primary Care Provider Unavailable Encounter Details Date Type Department Care Team Description 02/01/2020 Lab Requisition [facility] Paul Judge En counter for other Pathology & D, general examination Laboratory Medicine - [address] [place], [place] [address] [facility] [id number] [place] [address] Social History Tobacco Use Types Packs/Day Years Used Date Never Assessed Sex Assigned at Date Recorded Not on file documented as of this encounter Plan of Treatment Not on filedocumented as of this encounter Procedures Procedure Name Priority Date/Time Associated Diagnosis Comme nts COVID-19 TEST [facility] STAT 02/01/2020 10:00 Encounter for oth er LAB PCR EDT general examination COVID-19 TESTING STAT 02/01/2020 10:00 Encounter for other Results for this EDT general examination procedur e are in the results section. documented in this encounter Results COVID-19 TEST [facility] PCR (02/01/2020 10:00 EDT) Specimen Swab - Entire nasopharynx (body structur e) Performing Organization Address City/State/ZIP Code Phon e Number [facility] [address] [place] [address] SERVICES COVID-19 TESTING (02/01/2020 10:00 EDT) COVID-19 rt-PCR Negative Negative [facility] Result Comment: [facility] Negative results do not prec lude 2019-nCoV infection and should not be used as the sole basis for treatment or other patient management decisions. Negative results must be combined with clinical observa SERVICES tions, patient history, and epidemiological informatio n. This test has not been FDA c leared or approved. This test has been authorized by FDA under an EUA for use by authorized laboratories. This test has been authorized only for detection of nucleic acid fro m 2019-nCoV, not for any oth er viruses or pathogens. This test is only authorized for the duration of the declaration that circumstances exist justifying the authorization of emergency use of in vitro d iagnostic tests for detectio n and/or diagnosis of 2019-nCoV under section 564(b)(1) of Act, 21 U.S.C ?? 360bbb-3(b) (1), unless the authorization is terminated or revoked sooner. Performed on the [employer] GeneXpert Instrument Performing Lab [facility] Lab [facility] SERVICES Specimen Swab - Entire nasopharynx (body structur e) Performing Organization Address City/State/ZIP Code Phon e Number [facility] [address] [place] [phone] SERVICES documented in this encounter Visit Diagnoses Diagnosis Encounter for other general examination documented in this encounter Care Teams Pharmacy Affairs Assistant Relationship Specialty Start Date End Date Cally Flores PA PCP - General 06/16/12 documented as of this encounter
--- OUTSIDE RECORDS SUMMARY | 2022-06-13 04:27 | XMS_ITS | Clinical Summary ---
:1990 Author Organization [facility] [place] [address] Care Team Providers Name Role Phone Dulce Shook APRN Primary Care Provider Allergies Active Allergy Reactions Severity Noted Date Comments Bee Pollen 07/08/2019 Medications Medication Sig Dispensed Refills Start Date End Date Status vitamin with Take by mouth. 0 Active cwcskooz-Ds-Uelv-FA Tablet zinc sulfate (ZINCATE) Take 220 mg by 0 Active 220 (50) mg Capsule mouth daily. Psyllium Seed-Sucrose Take by mouth. 0 Active (0) Powder azithromycin Take 1 tablet by 3 tablet 0 07/08/2019 Active (ZITHROMAX) 500 mg mouth daily. Take TabletIndications: once daily for Counseling for travel fever with diarrhea. Active Problems Problem Noted Date state, incidental 07/08/2019 Overview: Due 02/17/2020 Immunizations Name Administration Dates Next Due Hepatitis A Vaccine, Adult 07/08/2019 Hepatitis B Vaccine, Ped/adol 04/02/2004, 09/23/2000, 1999 MMR Vaccine, Live 10/15/1999, 12/26/1991 Tdap Vaccine 04/15/2011 Typhoid, VICP 07/08/2019 Social History Tobacco Use Types Packs/Day Years Used Date Never Smoker Smokeless Tobacco: Never Used Sex Assigned at Date Recorded Not on file Plan of Treatment Health Maintenance Due Date Last Done Comments Covid-19 Vaccine (#1) 1995 HIV screen 2008 Hepatitis C Screening 2008 HPV test 2020 PAP Smear 2020 Tetanus vaccine 04/15/2021 04/15/2011 Influenza (Flu) vaccine (1 of 1 - Influenza standard 06/12/2022 series) Tdap adult Completed 04/15/2011 Insurance Payer Benefit Plan / Subscriber ID Effective Dates Phone Addre ss Type Group HEALTH PLANS HEALTH PLANS [id number] 2018-Nancy [phone] [id number] [place] [address] Care Teams Facilitator Relationship Specialty Start Date End Date Dulce Shook, CERTIFIED JUVENILE PROBATION OFFICER PCP - General Family Medicine 07/08/[address] [place] [address]
--- OUTSIDE RECORDS SUMMARY | 2022-06-13 04:27 | XMS_ITS | Encounter Summary ---
:1990 Author Organization [facility] Address [address] [place] [address] Care Team Providers Name Role Phone Cally Flores Primary Care Provider Unavailable Encounter Details Date Type Department Care Team Description 03/14/2020 Lab Requisition [facility] Yoan Turner MD Encounter for other Pathology & [address] [facility] general examination Laboratory Medicine [facility] [id number] [address] [facility] [phone] [place] [address] (Work) [phone] Social History Tobacco Use Types Packs/Day Years Used Date Never Assessed Sex Assigned at Date Recorded Not on file documented as of this encounter Plan of Treatment Not on filedocumented as of this encounter Procedures Procedure Name Priority Date/Time Associated Diagnosis Comme nts PAP TEST Today 03/13/2020 10:30 EDT Encounter for other Results for this general examination procedur e are in the results section. documented in this encounter Results PAP TEST (03/13/2020 10:30 EDT) Specimens A. Cervix and/or [facility] Endocervix , ThinPrep CENTER Imaging System with LABORATORY Manual Evaluation SERVICES Specimen Adequacy Satisfactory for Evaluation - transformation zone component present [facility] Scant squamous epithelial component, con tamination present, possibly lubricant [facility] SERVICES General Negative for [facility] intraepithelial CENTER lesion or malignancy LABORATORY SERVICES Attestation . [facility] signed by CARY Jain SERVICES CT(ASCP)(IAC) o n 03/20/2020 at 134 6 Clinical History NONE [facility] Scanned Images [facility] SERVICES Specimen Pap Test - Cervix and/or Endocervix Performing Organization Address City/State/ZIP Code Phon e Number [facility] [address] [place] [address] SERVICES documented in this encounter Visit Diagnoses Diagnosis Encounter for other general examination documented in this encounter Care Teams Tack Puller Relationship Specialty Start Date End Date Cally Flores PA PCP - General 06/16/12 documented as of this encounter
--- OUTSIDE RECORDS SUMMARY | 2022-06-13 04:27 | XMS_ITS | Encounter Summary ---
:1990 Author Organization [facility] Address [address] [place] [address] Care Team Providers Name Role Phone Cally Flores Primary Care Provider Unavailable Encounter Details Date Type Department Care Team Description 02/11/2016 Historical Results [facility] - Khloe Amaro Only [facility] Radiology F, PA Results [address] [place], [place] [address] [phone] (Wo rk) Social History Tobacco Use Types Packs/Day Years Used Date Never Assessed Sex Assigned at Date Recorded Not on file documented as of this encounter Plan of Treatment Not on filedocumented as of this encounter Procedures Procedure Name Priority Date/Time Associated Diagnosis Comme nts XR KNEE LEFT 3 02/11/2016 17:09 Results f or this VIEWS EDT procedure are i n the results section. documented in this encounter Results XR KNEE LEFT 3 VIEWS (02/11/2016 17:09 EDT) Specimen Narrative [facility] - 02/11/2016 17:13 EDT ? EXAM: RADIOLOGY/KNEE LT 3 VIEW ?EX. D/ (1621) ? CLINICAL INFORMATION: ? LEFT KNEE PAIN XRAY DONE AT OS ? -M25.562 ? KNEE LT 3 VIEW ? Signs and Symptoms/Comments: ??LE FT KNEE PAIN XRAY DONE AT [facility]: ? -M25.562 ? Comparison: None ? Findings: ? Standing AP, lateral, and sunrise views of the left knee reveal no ? fracture or malalignment. No sign ificant degenerative changes are ? present. No significant suprapate llar joint effusion is visible. ? IMPRESSION: ? Unremarkable left knee radiograph s. ? REPORT SIGNED IN OTHER VENDOR SYSTEM 02/11/2016 ?Reported B y: Baldo Sung MD ? CC: ? Transcribed Date/Time: 02/11/2016 (0033) ? Histology Teacher: ? Printed Date/Time: 03/25/2019 (00 55) ? PAGE 1 ? Maranda d Report ? Procedure Note Baldo Sung MD - 08/17/2019 EXAM: RADIOLOGY/KNEE LT 3 VIEW EX. D/ (1621) CLINICAL INFORMATION: LEFT KNEE PAIN XRAY DONE AT [facility] -M25.562 KNEE LT 3 VIEW Signs and Symptoms/Comments: LEFT KNEE PAIN XRAY DONE AT [facility]: -M25.562 Comparison: None Findings: Standing AP, lateral, and sunrise views of the left knee reveal no fracture or malalignment. No significan t degenerative changes are present. No significant suprapatellar j oint effusion is visible. IMPRESSION: Unremarkable left knee radiographs. REPORT SIGNED IN OTHER VENDOR SYSTEM 02/11/2016 Reported By: Baldo Sung MD CC: Transcribed Date/Time: 02/11/2016 (8213 ) Histology Teacher: Printed Date/Time: 03/25/2019 (8293) PAGE 1 Signed Report Performing Organization Address City/State/ZIP Code Phon e Number [facility] documented in this encounter Visit Diagnoses Not on filedocumented in this encounter Care Teams Pond Scaler Relationship Specialty Start Date End Date Cally Flores PA PCP - General 06/16/12 documented as of this encounter
--- OUTSIDE RECORDS SUMMARY | 2022-06-13 04:27 | XMS_ITS | Encounter Summary ---
:1990 Author Organization [facility] Address [address] [place] [address] Care Team Providers Name Role Phone Unknown, Provider Primary Care Provider Encounter Details Date Type Department Care Team Description 06/10/2012 Results Only [facility] Bang Linder, [address] [place] [address] (Wo rk) Social History Tobacco Use Types Packs/Day Years Used Date Never Assessed Sex Assigned at Date Recorded Not on file documented as of this encounter Plan of Treatment Not on filedocumented as of this encounter Procedures Procedure Name Priority Date/Time Associated Diagnosis Comme [facility] SURGICAL PATHOLOGY Routine 06/10/2012 0:00 EDT Re sults for this procedure are i n the results section. documented in this encounter Results SURGICAL PATHOLOGY (06/10/2012 0:00 EDT) Pathology Report: SURGICAL PATHOLOGY REPORT [facility] Reports generated via electronic interface contain jeniffer ginal data; LAB however they are lacking the format of the original re port. Caution should be taken when reading/interpreting unfo rmatted reports. Name: ? BILLIE ANGUIANO ? Accession #: ? [id number] ? : ? 1990 (Age: 21) ??F ? Collect Date: ? 06/10/2012 ? Location: ? [facility] ? Receive Date: ? 06/11/20 12 ? Provider: BANG LINDER DO Copy to: MAGY HUFFMAN ? Final Pathologic Diagnosis: A. ?Tonsil, right, tonsillectomy: 1. ?Tonsillar t issue with reactive lymphoid follicular hyperplasia. B. ?Tonsil, left, tonsillectomy: 1. ?Tonsillar t issue with reactive lymphoid follicular hyperplasia. Document reviewed and electronically signed by: Hong Avalos MD Report ??Date: 06/16/2012 14:04 By the signature above, the attending physician certif ies that he/she has personally conducted a gross and/or microscopic examin ation of the described specimens and rendered or confirmed the above diagnosi s. Specimen(s) Received: A. ?Right tonsil B. ? Left tonsil Clinical History: ? Tonsillitis/enlarged tonsils; clinical diagnosi s code: ??463, 474.11 Gross Description: ? Received in formalin labelled Billie Anguiano and Elat tonsil is a 3.7 x 2.0 x 2.0 cm firm, horner, focally horner-light brown, sli ghtly lobular palatine tonsil, which when sectioned reveals no discrete nodules. ??One payable representative section of the specimen is submitted as (A). Received in formalin zoe d Annmarie, Billie and Blechucky tonsil is a 3.7 x 2.5 x 2.0 cm partially fragmented, horner to focally horner-brow n, focally mildly hemorrhagic, slightly lobular, firm, palatine tonsil, which when sectioned reveals no discrete nodules. ??One payable representative sect ion of the specimen is submitted as (B). ??(Jarrod De La Cruz/emiliano End of Report Specimen Performing Organization Address City/State/ZIP Code Phon e Number [facility] [address] [place] [address] SERVICES [facility] [address] [place] [address] documented in this encounter Visit Diagnoses Not on filedocumented in this encounter Care Teams Escort Blind Relationship Specialty Start Date End Date Unknown, Provider, PCP - General 02/03/11 06/15/12 documented as of this encounter
--- OUTSIDE RECORDS SUMMARY | 2022-06-13 04:27 | XMS_ITS | Encounter Summary ---
:1990 Author Organization [facility] Address [facility] [place] [address] Care Team Providers Name Role Phone Dulce Shook APRN Primary Care Provider Reason for Visit Reason Comments Travel Consult Encounter Details Date Type Department Care Team Description 07/08/2019 Office Visit Infectious Disease at [facility] Moran state, incidental; [facility] [place] Need for prophylactic vaccin ation and inoculation against viral hepatitis; [facility] Need for prophylactic vaccination with typhoid-paratyphoid (TAB) vaccine; Drive [place] [address] Social History Tobacco Use Types Packs/Day Years Used Date Never Smoker Smokeless Tobacco: Never Used Sex Assigned at Date Recorded Not on file documented as of this encounter Progress Notes Vira Moran RN - 07/08/2019 1:30 PM EDT Adult Travel Clinic Reason for Visit: Billie Phillips is a 28 y.o. female patient who comes to travel clinic today for pre-travel evaluation, vaccination and traveler's health education. Trip Details: Destination countries (list from first to last): [employer]- land in [facility] x 4 days, [facility] x 3 days,with day trips to [facility] and [facility] and then to [facility] x 2 days. Depart for [place] via [facility]. Departure date: 07/27/19 Length of trip: 1 week Purpose of travel: vacation Type of environment: urban and rural Accommodations: hotels Medical History: Medical problems: Patient Active Problem List Diagnosis Code ??? state, incidental Z33.1 Current Outpatient Medications Medication Sig Dispense Refill ??? vitamin with tpvyzvyi-Lp-Pnys-FA Tablet Take by mouth. ??? zinc sulfate (ZINCATE) 220 (50) mg Capsule Take 220 mg by mouth daily. ??? Psyllium Seed-Sucrose (0) Powder Take by mouth. ??? azithromycin (ZITHROMAX) 500 mg Tablet Take 1 tablet by mouth daily. Take once daily for fever with diarrhea. 3 tablet 0 No current facility-administered medications for this visit. Immunosuppression: none History of adverse vaccine reactions: no History of latex, egg or beesting allergy: no or : 8 weeks Patient advised to carry all medications in carry on luggage. Travel Health and Safety Issues: A discussion of travel health hazards and safety issues was done, including the following topics: traffic-accidents (alcohol, seatbelts), crime, alcohol related issues, sun exposure/heat illness, Schistosomiasis and other fresh water exposures, rabies, HIV infections, Hepatitis and other STD's, control, TB, Health Insurance coverage/[employer]. Discussed food and water precautions and patient handout provided. The following strategies were recommended for the management of traveler's diarrhea according to severity: ?? For treatment of mild diarrhea: hydration and over the counter antidiarrheal recommended. ?? For treatment of diarrhea accompanied by fever or systemic illness: hydration and empiric treatment with antibiotic recommended. A prescription for Azithromycin 500 mg daily x 3 days faxed to pharmacy. Discussed antibiotic use, resistance and colonization issues. Advised to use antibiotics only formore severe symptoms, fever or worsening diarrhea. ?? For severe or bloody diarrhea, or diarrhea accompanied by vomiting: patient advised to seek medical treatment. Vector-borne Disease Prevention Discussed insect bite prevention to reduce risk of malaria, dengue, chikungunya and other insect borne illnesses. Handout given. . Malaria Risk: No malaria risk on this particular trip. Altitude: This trip does not involve high altitude. Immunizations Immunization History Administered Date(s) Administered ??? Hepatitis A Vaccine, Adult 07/08/2019 ??? Hepatitis B Vaccine, Ped/adol 10/15/1999, 09/23/2000, 04/02/2004 ??? MMR Vaccine, Live 12/26/1991, 10/15/1999 ??? Tdap Vaccine 04/15/2011 ??? Typhoid, VICP 07/08/2019 Immunizations given today- hepatitis A#1 and typhoid IM. Traveler is up to date with routine vaccinations including Tdap and hepatitis B series. Will get influenza vaccine through work. Discussed Azeri encephalitis disease risk and vaccine. Traveler is low risk and opts to forgo vaccination and employ meticulous mosquito precautions. Rabies- discussed animal avoidance, wound care and need for post-exposure prophylaxis. Follow-up Recommendations: Traveler will return to PCP in six months for second hepatitis A vaccine. Patient advised to call travel clinic if they return from trip with any illness. Time spent in travel counselin minutes. Vaccine information sheets given. documented in this encounter Plan of Treatment Not on filedocumented as of this encounter Visit Diagnoses Diagnosis state, incidental Need for prophylactic vaccination and in oculation against viral hepatitis Need for prophylactic vaccination with t yphoid-paratyphoid (TAB) vaccine Need for prophylactic vaccination with t yphoid-paratyphoid alone (TAB) Counseling for travel Other specified counseling documented in this encounter Care Teams Hospice/Home Health Aide Relationship Specialty Start Date End Date Dulce Shook APRN PCP - General Family Medicine 07/08/19 [address] [place] [address] documented as of this encounter
--- OUTSIDE RECORDS SUMMARY | 2022-06-13 04:27 | XMS_ITS | Encounter Summary ---
:1990 Author Organization [facility] Address [address] [place] [address] Care Team Providers Name Role Phone Cally Flores Primary Care Provider Unavailable Encounter Details Date Type Department Care Team Description 11/27/[address] [facility] Outr Resulting Lab, Pathology & Laboratory Provider [facility] [address] [place], [place] [id number] Social History Tobacco Use Types Packs/Day Years Used Date Never Assessed Sex Assigned at Date Recorded Not on file documented as of this encounter Plan of Treatment Not on filedocumented as of this encounter Procedures Procedure Name Priority Date/Time Associated Diagnosis Comme nts HEPATITIS C AB W Routine 11/26/2021 14:20 Results for this REFLEX TO HCV RNA EST procedure are in BY PCR the results section. HEPATITIS B SURFACE Routine 11/26/2021 14:20 Resu lts for this ANTIGEN EST procedure are i n the results section. documented in this encounter Results HEPATITIS B SURFACE ANTIGEN (11/26/2021 14:20 EST) Pathologist Sig nature Hep B Surface Ag Negative Negative [facility] Specimen Blood - Venous blood (substance) Performing Organization Address City/[facility]/ZIP Code Phon e Number [facility] [address] [place] [address] SERVICES HEPATITIS C AB W REFLEX TO HCV RNA BY PCR (11/26/2021 14:20 EST) Pathologist Sig nature Hep C Antibody Negative Negative [facility] Specimen Blood - Venous blood (substance) Performing Organization Address City/[facility]/ZIP [facility] Phon e Number [facility] [address] [place] [address] SERVICES documented in this encounter Visit Diagnoses Not on filedocumented in this encounter Care Teams Twist Maker Relationship Specialty Start Date End Date Cally Flores PA PCP - General 06/16/12 documented as of this encounter
[2022-06-13 04:49] LABS: Source Nasal/Nares
[2022-06-13 04:51] LABS: HCT 40.4 % (36.0-46.0); HGB 13.7 g/dL (11.2-15.7); MCH 29.5 pg (27.0-33.0); MCHC 33.9 % (32.0-36.0); MCV 87 fL (80-95); MPV 9.1 fL (8.0-11.0); Platelet Count 274 10^3/uL (130-400); RBC 4.65 10^6/uL (3.93-5.22); RDW 12.9 % (11.7-14.6); RDW-SD 40.6 fL
--- NOTE | 2022-06-13 04:59 | HPE_ITS ---
Date of service: 06/13/22 Time of Service: 05:00 Assessment and Plan Assessment and plan (1) Normal labor: Status: Acute Assessment and plan: Normal labor at 39 4/7. ITN for pain control. Anticipate soon OB-HPI Labor/Delivery History of Present Illness Reason for Visit: Labor Chief Complaint: Uterine Contractions; Suspected Rupture of Membranes (at 1:00) , Associated Signs and Symptoms of Suspected ROM: gush, clear fluid. ALISE Calculator Estimated Delivery Date Method Current WG Current Estimate 06/16/22 Ultrasound #1 39w 4d Other Estimates 06/02/22 LMP (Certain) 41w 4d History of Present Expected Delivery Route/Plan 1. , care (works in OR with MD's) 2. Both COVID vaccinated, patient also had Booster in August Narrative: category 1 strip. 8 cm on presenbtation. IV established, labs drawn, Covid done. Anesthesia for ITN Informed Consent Informed Consent: Regional Anesthesia and Risk,Benefits,Alternatives Discussed Review of Systems Narrative: Strong regular contractions, SROM clear Constitutional Constitutional: Reports as per HPI Cardiovascular Cardiovascular: Reports as per HPI, Denies chest pain and Denies irregular heart rhythm Respiratory Respiratory: Reports as per HPI, Denies chest congestion and Denies cough Gastrointestinal Gastrointestinal: Reports as per HPI Genitourinary Genitourinary: Reports system reviewed and no additional complaints, except as documented and Reports as per HPI Musculoskeletal Musculoskeletal: Reports system reviewed and no additional complaints, except as documented Integumentary/Breasts Skin/Breast: Reports system reviewed and no additional complaints, except as documented Neurologic Neurologic: Reports system reviewed and no additional complaints, except as documented Psychiatric Psychiatric: Reports system reviewed and no additional complaints, except as documented PFSH All Active Problems (Updated 06/13/22 @ 05:04 by Karma Moran DO) Normal labor (Acute) Acute sinusitis (Acute) (Acute) Medical History (Updated 06/13/22 @ 05:04 by Karma Moran DO) Acute appendicitis (02/18/13) Dermatitis (12/24/16) Encounter for control pills maintenance (11/13/15) Surgical History (Updated 11/25/21 @ 08:52 by Mehnaz Marlow CNM) Appendectomy (~01/2011) Status post tonsillectomy Tonsillectomy (06/10/12) DR. SHEIKH @ [facility] Family History (Updated 11/25/21 @ 08:53 by Mehnaz Marlow CNM) Mother Fibroid Father Hyperlipidemia Grandfather Diabetes Essential hypertension Heart disease Hyperlipidemia Grandfather Essential hypertension Hyperlipidemia Grandmother Diabetes Essential hypertension Heart disease Hyperlipidemia Fibroid Social History (Updated 12/26/21 @ 16:01 by Khloe Key MD) Smoking/Tobacco Use Status: Never Smoking risk assessment performed?: Yes Drug use: Never Household members: spouse, children and other Details: Leslie. Paul Rubio. Angie. 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 Date GA/Weeks # Preg Succ Route Wgt Sex Labor Lgth Anesth esia Location Prov Complic 02/02/20 37 No vaginal 6 lb [address] Mcqueen iegel Delivery Date: 02/02/20 Last Updated by: Bettina Andrew MD 'Humberto' SROM, labor augmentation Meds Allergies and Home Medications Allergies Allergy/AdvReac Type Severity Reaction Status Date / Time No Known Allergies Allergy Verified 06/10/22 14:33 Home Medications Medication Instructions Recorded Confirmed Type prenat.vits,michael,sgk-qeah-xxtgz 1 tab PO DAILY 06/28/19 06/10/22 History super c PO 12/26/21 06/10/22 History Exam Physical Exam Vital signs: Pulse Resp BP 88 18 124/63 06/13/22 04:58 06/13/22 04:42 06/13/22 04:58 Vital Signs Reviewed: Yes Notable Details: none Constitutional Constitutional: moderate distress (with contractions) Detailed Labor and Delivery Exam Dilation: 9 Effacement (%): 100 station: 0 Position: CHANA Cervix position: anterior Consistency: soft Smith Score: Cervical Points Exam 0 1 2 3 Dilation Closed 1-2cm 3-4 cm 5-6cm Effacement 0-30% 40-50% 60-70% 80% Consistency Firm Medium Soft Station -3 -2 -1,0 +1,+2 Position Posterior Mid Anterior Amniotic Membrane Status: Ruptured Rupture Method: Spontaneous Amniotic Fluid: Clear Contraction Frequency(min): 2-3 Contraction Duration(sec): 60 Contraction Intensity: Strong Fetus A Heart Rate Baseline: 120 Monitor Accelerations: Present Monitor Decelerations: None Presentation: Vertex Date of Membrane Rupture: 06/13/22 Time of Membrane Rupture: 01:30 Results Abnormal Lab Findings: Abnormal Labs 06/13/22 04:45 WBC 18.20 H Risk Assessment Risk for Shoulder Dystocia Historical/Initial OB: NEGATIVE FOR: Pelvic Abnormality, Pre- BMI>30, Previous Shoulder Dystocia or Previous Macrosomia Risk for Pre-Eclampsia Yes, if one or more: NEGATIVE FOR: Hx Pre-E/Gest HTN, Chronic HTN, Multiple Gestation, Pre-gestational DM, Renal Disease, Systemic Lupus or APA Syndrome Yes, if 2 or more: NEGATIVE FOR: Nulliparity, Age>= 35 yrs, >10yr btwn pregnancies, BMI>30, ethinicty, Mother/Sister w/ Pre-E or Previous IUGR Risk for Post- Hemorrhage Initial: NEGATIVE FOR: Multiple Gestation, Previous PPH, Known Clotting Deficiency, Grand Multiparity or Anticoagulation Risks Reviewed Risks Reviewed Upon Admission: Yes
--- NOTE | 2022-06-13 05:07 | W.ANESPRE ---
General Info Date of Service Date Performed: 06/13/22 Height: 5 ft 5 in Weight: 97 kg Body Mass Index (BMI): 35.6 Meds Allergies and Home Medications Allergies Allergy/AdvReac Type Severity Reaction Status Date / Time No Known Allergies Allergy Verified 06/10/22 14:33 Home Medication Medication Instructions Recorded prenat.vits,michael,iup-ueel-rodaw 1 tab PO DAILY 06/28/19 super c PO 12/26/21 Current Visit Medications: Current Medications Generic Name Dose Route Start Last Admin Trade Name Freq PRN Reason Stop Dose Admin Sodium Chloride 500 mls @ 0 mls/hr 06/13/22 04:26 Saline 500ml Bag IV PRN PRN As Directed IV Miscellaneous Supplies 1 each 06/13/22 04:30 Iv Access IV DIRECTED IVAN Sodium Chloride 0 ml 06/13/22 04:26 Normal Saline Flush 10 Ml Syr IVP PRN PRN PFSH Active Problems Active Problems: Problem Status Onset Code Normal labor O80, Z37.9 Acute sinusitis J01.90 Z34.90 Medical History Medical History (Updated 06/13/22 @ 05:04 by Karma Moran DO) Acute appendicitis (02/18/13) Dermatitis (12/24/16) Encounter for control pills maintenance (11/13/15) Surgical History Surgical History (Updated 11/25/21 @ 08:52 by Mehnaz Marlow CNM) Appendectomy (~01/2011) Status post tonsillectomy Tonsillectomy (06/10/12) DR. SHEIKH @ [facility] Tobacco Smoking/Tobacco Use Status: Never Passive smoking exposure: No Alcohol Alcohol Intake: never Substance Use Substance use: Never Prental History History 2 Para 1 Hx # Term Pregnancies 1 Multiple births Hx # Pregnancies Ectopic pregnancies AB induced Hx Number of Living Children 1 AB spontaneous Past Pregnancies Del. Date GA/Weeks # Preg Succ Route Wgt Sex Labor Lgth Anesthesia Location Prov Complic 02/02/20 37 No vaginal 2749.[address] Turner Delivery Date: 02/02/20 Last Updated by: Bettina Andrew MD 'Humberto' SROM, labor augmentation Vital Signs and Lab Results Vital Signs Most Recent Vital Signs in EMR: Most Recent Vital Signs Pulse Resp BP Pulse Ox 74 18 124/63 98 06/13/22 05:05 09/02/22 04:42 06/13/22 04:58 06/13/22 05:05 Lab Results Result Diagrams: 06/13/22 04:45 Blood Type / Crossmatch: No Data to Display Complete Blood Count: White Blood Count 18.20 10^3/uL (4.4-10.8) H 06/13/22 04:45 Red Blood Count 4.65 10^6/uL (3.93-5.22) 06/13/22 04:45 Hemoglobin 13.7 g/dL (11.2-15.7) 06/13/22 04:45 Hematocrit 40.4 % (36.0-46.0) 06/13/22 04:45 Platelet Count 274 10^3/uL (130-400) 06/13/22 04:45 Complete Metabolic Panel: No Data to Display Liver Function Panel: No Data to Display Coagulation Panel: No Data to Display Cardiac Panel: No Data to Display Arterial Blood Gas: No Data to Display Venous Blood Gas: No Data to Display Pancreas Panel: No Data to Display Thyroid Panel: No Data to Display Infectious Disease: Coronavirus 2019 Source Nasal/Nares 06/13/22 04:45 Blood Cultures: No Data to Display Toxicology Panel: Urine Amphetamines Screen Negative (Negative) 05/19/22 13:50 Urine Benzodiazepines Screen Negative (Negative) 05/19/22 13:50 Urine Barbiturates Screen Negative (Negative) 05/19/22 13:50 Urine Cocaine Screen Negative (Negative) 05/19/22 13:50 Urine Methadone Screen Negative (Negative) 05/19/22 13:50 Urine Opiates Screen Negative (Negative) 05/19/22 13:50 Ur Tricyclic Antidepressants Screen Negative (Negative) 05/19/22 13:50 Ur Tetrahydrocannabinol (THC) Scrn Negative (Negative) 05/19/22 13:50 Panel: No Data to Display Anesthesia Assessment and Plan Anesthesia History Personal History: No History of Anesthesia Complications Family History: No Family History of Anesthesia Complications Exercise Tolerance Exercise Tolerance: Metabolic Equivalents>4 Pertinent Negatives Pertinent Negatives: No Major Cardiovascular Symptoms or Complaints and No Major Pulmonary Symptoms or Complaints Cardiac & Pulmonary Exam Cardiac Exam: Normal S1/S2 Heart Sounds Pulmonary Exam: Clear Bilateral Breath Sounds Implantable Cardiac Device Does patient have a Pacemaker or an ICD?: No Airway Exam Known Difficult Airway: No Mallampati Class: 1 Mouth Opening: Normal (> 3cm) Thyromental Distance: Greater than 3 cm Neck Range of Motion: Full ROM Neck Circumference: Normal Teeth Condition: Normal Dentition ASA Classification ASA Score: ASA 2 Emergency Case?: No NPO Status NPO Status: Full Stomach Status Status: Confirmed Anesthesia Plan Resuscitation Status: Full Code Anesthesia Technique: Spinal Anesthesia Airway Planned: Natural Airway Pain Management: Intrathecal Analgesia Monitors Used: Standard Monitors
--- NOTE | 2022-06-13 05:12 | W.ANESPROC ---
Intrathecal Analgesia Date Performed: 06/13/22 Procedure Time: 04:50 Requesting Provider: Karma Moran Procedure Location: Obstetrics Reason Performed: Labor Intrathecal Analgesia Standard Monitors Applied: Blood Pressure, SpO2 and See EMR for corresponding vital signs Patient Position: Sitting Timeout Performed: Yes Sedation Given (Indicate Dose Given): No Sedation given Patient Mental Status: Awake Sterility: Hand Hygiene, Surgical Cap, Surgical Mask, Sterile Gloves and Chlorhexidine Placement Site: L2-L3 Interspace Spinal Needle Type: Sprotte 25 Gauge Needle Length: 3.5 Inch Spinal Procedure: Site Prepped, Sterile Drape Placed, 1% Lidocaine to skin and subcutaneous tissue with 25G needle, Introducer Needle Used, Spinal Needle Placed, Negative Heme, Positive CSF Flow and Medication Injected Paresthesia: Left Paresthesia Duration: Transient Spinal Local Anesthetic (Indicate Dose Given): Bupivacaine 0.25% PF (ml) Dose:: 1mL Additives (Indicate Dose Given): Fentanyl PF Dose:: 20 mcg and Duramorph PF Dose:: 150mcg Ultrasound: Not Used Number of Attempts (See previous attempts in note section): 1 Procedure Tolerated: No Complications Procedure Outcome: Successful Performed By: Nery Isbell
[2022-06-13 05:20] LABS: COVID-19 PCR Negative (Negative)
--- NOTE | 2022-06-13 06:11 | W.OBDELIVERY ---
Date of service: 06/13/22 Time of Service: 06:11 OB Labor/ Delivery Information Baby A Delivery Delivery Method: Spontaneaous Presentation: Vertex Cord Description-Baby A: 3 Vessels Cord Description Comment: normla Amniotic Fluid: Clear Estimated Blood Loss: 200 Delivery Outcome: Liveborn Infant Complications: none Transferred: Remains with Mother Note: Patient had spontaneous culture of membranes all clear fluid at approximately 1 AM. She had onset of contractions and presented to the center in active labor, 8 cm presentation. She received intrathecal for pain control and was noted to be completely dilated. She pushed for approximately 5 minutes spent, and delivered a viable male infant in over intact perineum. There was no nuchal cord shoulders followed with ease. Three-vessel cord was noted. Baby was placed skin to skin with mom. Delayed cord clamping performed at 2-minute. Cord blood sample was obtained. Placenta delivered spontaneously, and was in tact. No lacerations noted. Sponge, sharp and instrument counts were correct. Strong bonding was observed. Baby boy, APGARS 9 and 9. 4085 gm Providers Doctor: Karma Moran Nurse: Julieta Barrera Nurse: Winter Lance Labor/Delivery Information Number of Babies in Womb: 1 Steroids Given: None Reason Steroids Not Administered: N/A Group Beta Strep: Negative Antibiotics Administered: No Maternal Complications: None Shoulder Dystocia: No Stages of Labor Onset of Labor Date: 06/13/22 Onset of Labor Time: 01:30 Complete Dilatation Date: 06/13/22 Complete Dilatation Time: 05:07 Labor - Stage 1 Duration: 0 minutes ROM Baby A: 06/13/22 ROM Baby A: 01:30 ROM Total Time- Baby A: [id number] Delivery Date-Baby A: 06/13/22 Delivery Time-Baby A: 05:54 Labor Stage 2 Duration: 47 minutes Placenta Delivery Date-Baby A: 06/13/22 Placenta Delivery Time-Baby A: 06:00 Labor-Stage 3 Duration: 6 minutes Total Length of Labor-Baby A: 4 hours and 24 minutes Placenta Cultured: No Placenta Status: Delivered Baby A Infant Gender: Male Gestational Status: Term (39-41.6 wks) Gestational Age in Weeks/Days: 39 Weeks and 4 Days Score-1 Minute Interval(Baby A) Heart Rate-1 minute: 100 BPM or Greater Respiratory Effort- 1 minute: Spontaneous/Strong Cry Muscle Tone-1 minute: Active Movement Reflex Response-1 minute: Prompt Response Color-1 minute: Bluish Hands or Feet Total Score-1 minute: 9 Score-5 Minute Interval(Baby A) Heart Rate- 5 minute: 100 BPM or Greater Respiratory Effort-5 minute: Spontaneous/Strong Cry Muscle Tone-5 minute: Active Movement Reflex Response-5 minute: Prompt Response Color-5 minute: Bluish Hands or Feet Total Score- 5 minute: 9
[2022-06-13] MEDS: Ibuprofen 600 MG TAB PO ×2 (08:48→15:06)
[2022-06-13] MEDS: Acetaminophen 325 MG TAB 650 MG PO ×2 (08:48→15:06)
--- NOTE | 2022-06-13 13:57 | W.ANESPOSTOP ---
Postoperative Evaluation Date, Time and Location Date Performed: 06/13/22 Time Performed: 13:58 Patient Location: Obstetrics Vital Signs Most Recent Imported Vital Signs: Most Recent Vital Signs Temp Pulse Resp BP Pulse Ox 36.8 C 61 18 116/63 98 06/13/22 10:24 06/13/22 12:20 06/13/22 10:24 06/13/22 12:20 06/13/22 05:05 Assessment Mental Status: Awake (Alert & Oriented to Patient Baseline) Airway and Respiratory Function: Patent airway with normal (patient baseline) respiratory exam Cardiovascular Function: Hemodynamically Stable Hydration Status: Adequately Hydrated Nausea & Vomiting: No Nausea or Vomiting Pain: Pt. Denies Any Pain Peripheral Nerve Block: Patient did not receive a nerve block Postoperative Comments:: some residual lateral thigh numbness on the right.
[2022-06-13] MEDS: Hamamelis Leaf/Glycerin 100 EACH BOX PR (15:05)
[2022-06-14] MEDS: Ibuprofen 600 MG TAB PO ×2 (02:04→08:28)
[2022-06-14] MEDS: Acetaminophen 325 MG TAB 650 MG PO ×2 (02:04→08:31)
[2022-06-14 06:19] LABS: HCT 38.2 % (36.0-46.0); HGB 12.9 g/dL (11.2-15.7); MCH 29.8 pg (27.0-33.0); MCHC 33.8 % (32.0-36.0); MCV 88 fL (80-95); MPV 9.2 fL (8.0-11.0); Platelet Count 225 10^3/uL (130-400); RBC 4.33 10^6/uL (3.93-5.22); RDW 12.9 % (11.7-14.6); RDW-SD 41.7 fL
[2022-06-14 08:30] VITALS: BP 118/70; PULSE 61; RESP 14; TEMP 36.6; O2SAT 96
--- NOTE | 2022-06-14 10:27 | DSE_ITS ---
Date of service: 06/14/22 Time of Service: 10:27 DS: Diagnosis Discharge Diagnosis (1) Normal labor: Status: Acute (2) (normal spontaneous vaginal delivery): Status: Acute Discharge Plan Disposition Patient Disposition: HOME Condition: Stable Discharge Details Reason For Visit: Labor Admit Date/Time: 06/13/22 04:26 Admit Provider: Karma Moran Attending Provider: Karma Moran Primary Care Provider: Dulce Shook Hospital Course Hospital Course: Pt had SROM early in morning of 06/14/22. Labor uncomplicated. Successful with spinal for labor analgesia. Discharged to home PPD 1. Successfully Plan f/u in 2w with Dr Moran for PP f/u. Home Meds and New Rx's Prescriptions: No Action prenat.vits,michael,sqy-nqyi-tzrte Tablet 1 tab PO DAILY super c PO Discharge Instructions Stand Alone Forms: BC Instructions, BC Post Vaginal Deliver Activity:: Activity as Tolerated Equipment/Supplies:: No Equipment Needed Diet:: Normal Diet Discharge Orders Discharge Orders: Discharge Order (Routine); Ordered 06/14/22 Ordered By: Khloe Key OB:DS Summary Summary Vaginal Delivery Method: Spontaneaous Episiotomy Description: None Laceration Description: None Laceration Extension: N/A Contraception Discussed Contraception Discussed: No (had been discussed during course.), [place] Gender-Baby A: Male Status at Discharge Functional status at discharge: independent ambulation Overall status at discharge: patient is back to baseline Mental Status: mental status grossly normal Speech and Movement: speech and movement normal Mood: congruent mood Affect: normal affect Exam Physical Exam Vital signs: Temp Pulse Resp BP Pulse Ox 97.9 F 61 14 118/70 96 06/14/22 08:30 06/14/22 08:30 06/14/22 08:30 06/14/22 08:30 06/14/22 08:30 Vital Signs Reviewed: Yes Constitutional Constitutional: no acute distress HEENT Exam HEENT Exam: Not Done Neck Exam Neck Exam: Not Done Respiratory Exam Respiratory Exam: Normal Cardiovascular Exam Cardiovascular Exam: Normal Abdominal Exam Abdomen: Other (non-tender) Fundal Exam Fundus: Below Umbilicus and Firm Rectal Exam Rectal Exam: Not Done Extremities Exam Extremity Exam: Normal Back/Spine/Pelvis Exam Back Exam: Not Done Skin Exam Skin Exam: Normal Neurological Exam Neurological Exam: Normal Psychiatric Exam Psychiatric Exam: Normal PFSH All Active Problems (Updated 06/14/22 @ 10:29 by Khloe Key MD) (normal spontaneous vaginal delivery) (Acute) 06/13/2022. Baby Boy. APGARS 9 and 9. 4085 gm. SROM 0100, delivery 0555. Bobo Paez. Normal labor (Acute) Acute sinusitis (Acute) (Acute) Medical History (Updated 06/14/22 @ 10:29 by Khloe Key MD) Acute appendicitis (02/18/13) Dermatitis (12/24/16) Encounter for control pills maintenance (11/13/15) Surgical History (Updated 11/25/21 @ 08:52 by Mehnaz Marlow CNM) Appendectomy (~01/2011) Status post tonsillectomy Tonsillectomy (06/10/12) DR. SHEIKH @ [facility] Family History (Updated 11/25/21 @ 08:53 by Mehnaz Marlow CNM) Mother Fibroid Father Hyperlipidemia Grandfather Diabetes Essential hypertension Heart disease Hyperlipidemia Grandfather Essential hypertension Hyperlipidemia Grandmother Diabetes Essential hypertension Heart disease Hyperlipidemia Fibroid Social History (Updated 06/14/22 @ 10:31 by Khloe Key MD) Smoking/Tobacco Use Status: Never Smoking risk assessment performed?: Yes Alcohol Intake: never Drug use: Never Household members: spouse, children and other Details: Paul Ruiz. 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 Date GA/Weeks # Preg Succ Route Wgt Sex Labor Lgth Anesth esia Location Prov Complic 02/02/20 37 No vaginal 6 lb [address] Mcqueen iegel 06/13/22 39 No Yes vaginal 9 lb Male 3hrs [facility] son[facility] hn[facility] Delivery Date: 02/02/20 Last Updated by: MD Vannessa Boyd' SROM, labor augmentation Delivery Date: 06/13/22 Last Updated by: Khloe Key MD Arrived @ [address] [place] [address]. DS: Data Vitals/I&O Vitals and I&O: Vital Signs Temperature 97.9 F 06/14/22 08:30 Pulse 61 06/14/22 08:30 Pulse Rhythm Regular 06/14/22 08:30 Respiratory Rate 14 06/14/22 08:30 Respiratory Depth Normal 06/14/22 08:30 Blood Pressure 118/70 06/14/22 08:30 Blood Pressure Mean 86 06/14/22 08:30 Pulse Oximetry 96 06/14/22 08:30 Intake & Output 06/13/22 06/13/22 06/14/22 11:59 23:59 11:59 Intake Total 1400 / 1960 560 / 1960 Output Total 175 / 1675 1500 / 1675 Balance 1225 / 285 -940 / 285 Weight 213 lb 13.574 oz Intake: Oral 1400 / 1960 560 / 1960 Output: Urine 175 / 1675 1500 / 1675 Other: Urine Color [place] Yellow Pale Yellow Data Completed and Pending Labs on day of discharge: Labs from last 24 hours 06/14/22 06:15 WBC 15.60 H RBC 4.33 Hgb 12.9 Hct 38.2 MCV 88 MCH 29.8 MCHC 33.8 RDW 12.9 Plt Count 225 MPV 9.2
== END 2022-06-14 13:12 | disposition home or self-care (01) | DRG 807 ==
PROVIDERS: Admitting Provider Obstetrics & Gynecology; Visit Provider Obstetrics & Gynecology
DX: O80 Encounter for full-term uncomplicated delivery (principal); Z37.0 Single live birth; Z3A.39 39 weeks gestation of pregnancy
CPT/HCPCS: 36415; 85027; 86850; 86900; 86901; 87635

== ENCOUNTER 2023-06-12 03:46 | Outpatient (CLI) | payer OTHER, SELFPAY ==
[2023-06-12 08:47] LABS: Abs Immature Grans 0.02 10^3/uL (0.0-0.06); Absolute Basophil Count 0.03 10^3/uL (0.0-0.2); Absolute Eosinophil Count 0.26 10^3/uL (0.0-0.7); Absolute Lymphocyte Count 2.54 10^3/uL (1.2-3.4); Absolute Monocyte Count 0.37 10^3/uL (0.1-0.8); Absolute Neutrophil Count 4.42 10^3/uL (1.2-6.7); Basophils % 0.4; Eosinophils % 3.4; HCT 44.8 % (36.0-46.0); HGB 15.1 g/dL (11.2-15.7); Immature Grans % 0.3; Lymphocytes % 33.2; MCHC 33.7 % (32.0-36.0); MCV 86 fL (80-95); Monocytes % 4.8; Neutrophils % 57.9; Platelet Count 289 10^3/uL (130-400); RBC 5.21 10^6/uL (3.93-5.22); RDW 12.6 % (11.7-14.6); RDW-SD 39.4 fL; WBC 7.64 10^3/uL (4.4-10.8)
[2023-06-12 08:50] LABS: ESR 3 mm/hr (0-20)
[2023-06-12 09:23] LABS: Hemoglobin A1C 5.6 % (<5.7)
[2023-06-12 09:29] LABS: Cholesterol 162 mg/dL (<200); HDL Cholesterol 52 mg/dL (40-60); LDL CHOLESTEROL 100 mg/dL (<100)
[2023-06-12 09:39] LABS: ALT 27 U/L (14-59); AST 14 U/L (15-37); Albumin 4.1 g/dL (3.4-5.0); Alkaline Phosphatase 99 U/L (46-116); BUN 12 mg/dL (7-18); Bilirubin, Total 0.4 mg/dL (0.2-1.0); CREATININE 0.7 mg/dL (0.55-1.02); Calcium 8.7 mg/dL (8.5-10.1); Chloride 103 mmol/L (98-107); Estimated GFR 117.77 (mL/min/1.73m2); Glucose 95 mg/dL (74-106); Potassium 4.2 mmol/L (3.5-5.1); Sodium 139 mmol/L (136-145); T4 7.2 ug/dL (4.7-13.3); TSH (W/Ref FT4) 0.83 uIU/mL (0.36-3.74); Total Protein 7.7 g/dL (6.4-8.2)
[2023-06-12 10:09] LABS: Vitamin D 25 Total 27.7 ng/mL (30-100)
[2023-06-12 11:29] LABS: C-Reactive Protein 0.08 mg/dL (0.0-0.3); FREE T4 0.95 ng/dL (0.76-1.46)
[2023-06-12 18:31] LABS: CRP, High Sensitivity 1.31 mg/L (See Note)
[2023-06-12 19:11] LABS: Estradiol 51 pg/mL (See Note)
[2023-06-15 10:35] LABS: LH 7.1 mIU/mL (See Note)
[2023-06-15 10:54] LABS: DHEA Sulfate 132 ug/dL (96-512)
[2023-06-18 15:33] LABS: T3 (Triiodothyronine) Reverse 16 ng/dL (10-24)
[2023-06-21 10:48] LABS: Testosterone, Total 18 ng/dL (8-60)
== END 2023-06-12 03:47 | disposition home or self-care (01) ==
LOC: LBO 03:46
PROVIDERS: PCP Nurse Practitioner Family; Visit Provider Surgery
DX: R53.83 Other fatigue (principal)
CPT/HCPCS: 36415; 80053; 82306; 82627; 83519; 83721; 84402; 84403; 85652; 86141; 82465; 82670; 83001; 83002; 83036; 83718; 84436; 84439; 84443; 84482; 85025; 86140

== ENCOUNTER 2024-07-05 16:30 | Outpatient (REF) | payer OTHER, SELFPAY ==
--- NOTE | 2024-07-05 16:00 | PAPFT_PTH ---
PATIENT: Billie Phillips LOC: [facility] U#:[id number] AGE/SX: 33/F ROOM: RE07/05/[address]: Bettina Andrew MD : 1990 BED: DIS: 07/05/2024 SPEC #: [id number] RECD: 07/05/24 17:30 STATUS: GRACIE REQ #: [id number] THANH: 07/05/24 16:[address]: Bettina Andrew DEPT: [facility] Cytology RECD BY: Felicia Jasmine ENTERED: 07/05/24 17:30 SP TYPE: PAPFT OTHR DR: Unknown,Unknown Tissues: 1 - CX/ENDOCX FOR PAP SMEARS Procedures: PAP THIN PREP/[facility] Screening HPV DNA PROBE Comments: [id number] (HPV 16 & 18/45)
[2024-07-07 12:17] LABS: Chlamydia Result Negative (Negative); GC Result Negative (Negative)
== END 2024-07-05 16:31 | disposition home or self-care (01) ==
LOC: LBN 16:30
PROVIDERS: Visit Provider Obstetrics & Gynecology
DX: N94.9 Unspecified condition associated with female genital organs and menstrual cycle (principal); Z12.4 Encounter for screening for malignant neoplasm of cervix
CPT/HCPCS: 87491; 87591; 88142; 87480; 87510; 87624; 87660

== ENCOUNTER 2024-07-15 01:50 | Outpatient (CLI) | payer OTHER, SELFPAY ==
[2024-07-18 09:26] LABS: HIV-1/2 Ag & Ab Screen Negative (Negative)
[2024-07-18 09:37] LABS: HBs Antibody, Qual Positive (See Note); HBs Antibody, Quant >1000.0 mIU/mL (See Note); Hepatitis B Core Antibody Negative (Negative); Hepatitis B surface Ag Negative (Negative); Hepatitis C Ab w Rflx HCV PCR Negative (Negative)
[2024-07-18 10:44] LABS: Syphilis Serology (RPR) Negative (Negative)
== END 2024-07-15 01:51 | disposition home or self-care (01) ==
LOC: LBO 01:51
PROVIDERS: Visit Provider Obstetrics & Gynecology
DX: Z11.3 Encounter for screening for infections with a predominantly sexual mode of transmission (principal)
CPT/HCPCS: 36415; 86704; 86706; 86803; 87340; 87389; 86592

== ENCOUNTER 2025-07-04 16:10 | Outpatient (REF) | payer OTHER, SELFPAY ==
[2025-07-04 16:11] LABS: Glucose Negative (Negative)
[2025-07-04 16:21] LABS: C & S Indicated? Yes; RBC >50 HPF (0-2); WBC >50 HPF (0-5)
== END 2025-07-04 16:11 | disposition home or self-care (01) ==
LOC: LBN 16:10
PROVIDERS: PCP Nurse Practitioner Family; Visit Provider Student in an Organized Health Care Education/Training Program
DX: R30.0 Dysuria (principal)
CPT/HCPCS: 87077; 81003; 81015; 87086; 87186